=== PATIENT | female | born 1995 | race Caucasian/White ===

== ENCOUNTER 2019-07-28 10:48 | Emergency (ER) | payer BC, MEDICAID, SELFPAY ==
--- NOTE | ~2019-07-28 | XR_ITS ---
XR foot RT 2V DATE: 07/28/2019 11:54 INDICATION: Pain after misstep, injury TECHNIQUE: AP and lateral views COMPARISON: None FINDINGS: No fracture or dislocation, periosteal reaction or bone destruction. IMPRESSION: Negative Reviewed, dictated and finalized at location B. FORMER IMPRESSION: Negative
[2019-07-28 11:22] VITALS: BP 123/69; PULSE 85; RESP 20; TEMP 37.1; O2SAT 100
--- NOTE | 2019-07-28 12:53 | ED.LOWEXIN ---
HPI - Extremity Injury (Lower) General Chief Complaint: Extremity Injury, Lower Stated Complaint: right foot injury Time Seen by Provider: 07/28/19 11:28 Source: patient Mode of arrival: ambulatory Limitations: no limitations History of Present Illness HPI Narrative: Patient is a 24-year-old female who presents with right foot pain noting that she stepped awkwardly yesterday and has since had forefoot pain localized to the medial aspect of the right forefoot without bruising or swelling or other deformity is a been able to bear weight has no other complaints and presents in no distress Related Data Allergies Allergy/AdvReac Type Severity Reaction Status Date / Time bee venom protein (honey bee) Allergy Unknown Unknown Verified 07/28/19 11:24 ciprofloxacin Allergy Unknown Rash Verified 07/28/19 11:45 erythromycin base Allergy Unknown Swelling Verified 07/28/19 11:45 POTASSIUM CLAVULANATE Allergy Unknown NAUSEA/VOMI Uncoded 07/28/19 11:45 TING Review of Systems Review of Systems: Narrative: SKIN: Denies bruising or swelling MUSCULOSKELETAL: Right foot pain NEUROLOGIC: Denies numbness, or weakness. PMFSH Past Medical History Medical History ADHD, predominantly inattentive type Anxiety Endometriosis with surgery x3 Gout Kidney stone Migraines Shingles UTI (urinary tract infection) Surgical History Surgical History History of cholecystectomy History of knee surgery rt knee History of wisdom tooth extraction Family History Family History (Updated 05/17/18 @ 11:56 by DOCTOR UNKNOWN) Father Hypertension Patient's father is in good health Family history of pancreatic disease Mother Patient's mother is in good health Family history of gynecological problem Grandparent Diabetes mellitus Family history of cardiovascular disease Other Family history of lymphoma Social History Social History Smoking status: Never smoker Alcohol intake: current Gender identity (if verbalized by the patient): Female Exam Narrative: Exam Narrative: GENERAL: Well-appearing, well-nourished, and in no acute distress. HEAD: Normocephalic, atraumatic. EYES: PERRLA and EOMI. ENT: Nares clear, no rhinorrhea or epistaxis. Mucous membranes moist. EXTREMITIES: Normal range of motion. No edema. Tenderness of the right forefoot medial aspect no deformity noted no ankle tenderness SKIN: Warm, dry, no rash. NEURO: No focal deficits. Alert and oriented x3. Neurovascularly intact. Capillary refill less than 2 seconds PSYCH: Normal mood and affect. Course Course Emergency Course: Patient in the room in no distress aware of case findings treatment plan and diagnosis Vital Signs Vital signs: Vital Signs Temperature 98.7 F 07/28/19 11:22 Pulse Rate 85 07/28/19 11:22 Respiratory Rate 07/28/19 11:22 Blood Pressure 123/69 07/28/19 11:22 Pulse Oximetry 100 07/28/19 11:22 Temperature 98.7 F 07/28/19 11:22 Pulse Rate 85 07/28/19 11:22 Respiratory Rate 07/28/19 11:22 Blood Pressure 123/69 07/28/19 11:22 Pulse Oximetry 100 07/28/19 11:22 MDM - Extremity Injury (Lower) MDM Narrative Medical decision making narrative: Patients injury or pain is consistent with musculoskeletal etiology. No signs of neurological or vascular compromise on exam. Compartments and tisues are soft without signs of compartment syndrome. Pain is felt appropriate for further evaluation on an outpatient basis. Discharge Plan Discharge Clinical Impression: Acute pain of right foot Patient Disposition: Home, Self-Care Condition: Stable Instructions: Antibiotic Form, Foot Sprain (ED) Additional Instructions: Wear [place] wrap with limited weight on the affected leg until able to bear weight without pain. Ice and elevate extremit
== END 2019-07-28 13:05 | disposition home or self-care (01) ==
PROVIDERS: Emergency Provider Family Medicine; PCP Family Medicine
DX: M79.671 Pain in right foot (principal); F90.9 Attention-deficit hyperactivity disorder, unspecified type; F41.9 Anxiety disorder, unspecified; Z87.442 Personal history of urinary calculi; Z87.440 Personal history of urinary (tract) infections
CPT/HCPCS: 73620; 99283

== ENCOUNTER 2019-12-26 09:32 | Observation (INO) | payer BC, SELFPAY ==
[2019-12-26] VITALS (13 sets, daily range): BP systolic 102–135; BP diastolic 67–86; PULSE 40–64; RESP 10–20; TEMP 36.7–37.4; O2SAT 98–100
--- NOTE | ~2019-12-26 | CT_ITS ---
EXAMINATION: CTA chest PE protocol DATE: 12/26/2019 11:32 INDICATION: Mid chest pain. Shortness of breath. TECHNIQUE: Computed tomography angiography (CTA) of the chest was performed with 100 mL Omnipaque-350 intravenous contrast timed to evaluate the pulmonary arteries. Coronal maximum intensity projection 3D-reconstructions were created by the technologist. Automated exposure control and iterative reconst ruction technique were employed. Exam dose: 266.37 mGy-cm total exam DLP. COMPARISON: None. FINDINGS: There is diagnostic contrast enhancement of the pulmonary arteries and no evidence of pulmo nary embolism. No evidence of thoracic aortic aneurysm. No hilar or mediastinal mass lesion or lymphadenopathy. Normal heart size. No pericardial or pleural effusion. No pulmonary infiltrate or consolidation. Inci dentally noted is cholecystectomy. The adrenal glands are normal. No significant abnormality of the i ncluded upper abdominal structures. Included skeletal structures are unremarkable. IMPRESSION: No evidence of pulmonary embolism Reviewed, dictated and finalized at Location A. Reviewed, dictated and finalized at location A.
--- NOTE | ~2019-12-26 | XR_ITS ---
EXAMINATION: XR chest 2V 12/26/2019 10:05 INDICATION: Chest pain PROCEDURE: PA and lateral views of the chest COMPARISON: 03/29/2018 FINDINGS: The lungs are clear. The cardiomediastinal silhouette is within normal limits. There are no pleural effusions. There is no pneumothorax suspected. IMPRESSION: 1: NO ACUTE CARDIOPULMONARY DISEASE. Reviewed, dictated and finalized at location B.
--- NOTE | 2019-12-26 09:47 | ECG_ITS ---
Measurements Intervals [place] Rate: 46 P: 22 VT: 138 QRS: 37 QRSD: 83 T: 19 QT: 424 QTc: 373 Interpretive Statements SINUS BRADYCARDIA WITH SINUS ARRHYTHMIA ABNORMAL ECG Electronically Signed On 12-26-2019 11:11:14 CDT by Mark Matt D.O.
[2019-12-26] MEDS: ASPIRIN 81 MG CHEWABLE TABLET 324 MG PO (10:01)
[2019-12-26 10:05] LABS: Basophils Percent Auto 0.6 % (0.2-1.2); Eosinophils Absolute Auto 0.1 K/mm3 (0-0.3); Eosinophils Percent Auto 0.9 % (0-4.4); Hematocrit 44.6 % (37.0-47.0); Hemoglobin 14.7 g/dL (12.0-15.0); Immature Granulocyte Absolute 0.01 K/mm3 (0.00-0.031); Immature Granulocyte Percent A 0.2 % (0-0.5); Lymphocytes Absolute Auto 1.93 K/mm3 (0.9-3.2); Lymphocytes Percent Auto 36.3 % (18.3-44.2); Mean Corpuscular Hemoglobin 29.2 pg (26-34); Mean Corpuscular Volume 88.7 fl (80-100); Monocytes Absolute Auto 0.4 K/mm3 (0.1-0.6); Neutrophils Absolute Auto 2.9 K/mm3 (1.3-6.7); Platelet Count Result 261 k/mm3 (150-375); Red Blood Count 5.03 M/mm3 (4.2-5.4); Red Cell Distribution Width 12.4 % (11.5-14.5); White Blood Count 5.3 K/mm3 (4.5-10.0)
[2019-12-26 10:14] LABS: Blood Urea Nitrogen 8 mg/dL (7-17); Calcium 9.2 mg/dL (8.4-10.2); Carbon Dioxide 26 mmol/L (22-30); Chloride 102 mmol/L (98-107); Estimated CRCL calculation 81 ml/min; Estimated Glomerular Filt Rate > 60; Glucose 94 mg/dL (65-105); Potassium 4.1 mmol/L (3.4-5.0); Sodium 138 mmol/L (137-145)
[2019-12-26 10:17] LABS: Prothrombin Time 12.8 Seconds (11.1-14.7)
[2019-12-26 10:18] LABS: Partial Thromboplastin Time 30.4 SECONDS (22.3-36.8)
[2019-12-26 10:30] LABS: Troponin I 0.138 ng/mL (0.000-0.034)
--- NOTE | 2019-12-26 10:32 | ECG_ITS ---
Measurements Intervals [place] Rate: 42 P: 28 FL: 141 QRS: 21 QRSD: 83 T: 14 QT: 445 QTc: 375 Interpretive Statements SINUS BRADYCARDIA ABNORMAL ECG Electronically Signed On 12-26-2019 11:11:47 CDT by Mark Matt D.O.
[2019-12-26] MEDS: FAMOTIDINE 20 MG/2 ML VIAL IV PUSH (10:34)
--- NOTE | 2019-12-26 10:50 | PC.NURSE ---
Verbal order from Zoran DAVIS, do not administer toradal r/t elevated troponin.
[2019-12-26 11:02] LABS: D Dimer < 0.22 ug/mL (<0.48)
[2019-12-26 11:09] LABS: Add Urine Microscopic? YES; Appearance Urine Clear (Clear); Bilirubin Urine Negative (Negative); Blood Urine 1+ (Negative); Color Urine Straw (Yellow); Glucose Urine UA Negative (Negative); Ketones Urine Negative (Negative); Leukocyte Esterase Ur Negative LEU/UL (Negative); Nitrate Urine Negative (Negative); Protein Urine Negative (Negative); RBC Urine 0-2 /hpf (0-2); Squamous Epithelial Cell Urine Occasional /hpf (Few); Urobilinogen Urine Negative mg/dL (<2.0); WBC Urine 0-3 /hpf
--- NOTE | 2019-12-26 11:09 | ED.CHESTPAIN ---
HPI - Chest Pain General Chief Complaint: Chest Pain <MARIETTA Aparicio Last Filed: 12/26/19 13:10> Stated Complaint: CHEST HURTS, SOB <MARIETTA Aparicio Last Filed: 12/26/19 13:10> Time Seen by Provider: 12/26/19 10:05 <MARIETTA Aparicio Last Filed: 12/26/19 13:10> Source: patient <MARIETTA Aparicio Last Filed: 12/26/19 13:10> Mode of arrival: ambulatory <MARIETTA Aparicio Last Filed: 12/26/19 13:10> Limitations: no limitations <MARIETTA Aparicio Last Filed: 12/26/19 13:10> History of Present Illness HPI narrative: Patient is a 24-year-old female who presents to emergency department noting midsternal chest pain radiating up to the right side of the neck that woke her from her sleep this morning at 5 AM and has persisted and gradually worsened when she went to work made 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 Patient denies similar occurrence in the past. Patient notes that she has not taken anything for the pain and denies any recent illness. Patient resting comfortably in the room upon arrival. Patient was tested for COVID a week ago and notes negative result secondary to possible workplace exposure. Patient notes she has had bradycardia since having her gallbladder removed in May which was also complicated by a liver laceration. <MARIETTA Aparicio Last Filed: 12/26/19 13:10> Related Data Home Medications: Home Medications Medication Instructions Recorded Confirmed levonorgestrel-ethinyl estrad tablet 12/26/19 [Aviane] <MARIETTA Aparicio Last Filed: 12/26/19 13:10> Allergies/Adverse Reactions: Allergies Allergy/AdvReac Type Severity Reaction Status Date / Time bee venom protein (honey bee) Allergy Unknown Unknown Verified 12/26/19 09:44 ciprofloxacin Allergy Unknown Rash Verified 12/26/19 09:44 erythromycin base Allergy Unknown Swelling Verified 12/26/19 09:44 POTASSIUM CLAVULANATE Allergy Unknown NAUSEA/VOMI Uncoded 11/20/19 08:42 TING <MARIETTA Aparicio Last Filed: 12/26/19 13:10> Review of Systems Review of Systems: All systems reviewed & are unremarkable except as noted in HPI and below <Fredi Fung PA-C - Last Filed: 12/26/19 13:10> PMFSH Past Medical History Medical History: Medical History ADHD, predominantly inattentive type Anxiety Endometriosis with surgery x3 Gout Kidney stone Migraines Shingles UTI (urinary tract infection) <Fredi Fung PA-C - Last Filed: 12/26/19 13:10> Surgical History Surgical History: Surgical History History of cholecystectomy History of knee surgery rt knee History of wisdom tooth extraction <Fredi Fung PA-C - Last Filed: 12/26/19 13:10> Family History Family History: Family History Father Hypertension Patient's father is in good health Family history of pancreatic disease Mother Patient's mother is in good health Family history of gynecological problem Grandparent Diabetes mellitus Family history of cardiovascular disease Other Family history of lymphoma <Fredi Fung PA-C - Last Filed: 12/26/19 13:10> Social History Social History: Social History Smoking status: Never smoker Alcohol intake: current Gender identity (if verbalized by the patient): Female <Fredi Fung PA-C - Last Filed: 12/26/19 13:10> Exam Narrative: Exam Narrative: GENERAL: Well-appearing, well-nourished, and in no acute distress. HEAD: Normocephalic, atraumatic. EYES: PERRLA and EOMI. ENT: Nares clear, no rhinorrhea or epistaxis. Mucous membranes moist. Oropharynx without tonsillar hypertrophy exudate or other lesions. NECK: Sup
--- NOTE | 2019-12-26 11:24 | PC.NURSE ---
pt to ct via stretcher with radiology at this time.
[2019-12-26 13:42] LABS: Cholesterol 183 mg/dL (0-200); HDL Direct 62 mg/dL; Triglycerides 63 mg/dL (<150)
[2019-12-26 13:53] LABS: LDL Cholesterol Direct 111 mg/dL
[2019-12-26 14:08] LABS: Troponin I < 0.012 ng/mL (0.000-0.034)
--- NOTE | 2019-12-26 16:03 | ECG_ITS ---
Measurements Intervals [place] Rate: 42 P: 16 MT: 143 QRS: 33 QRSD: 84 T: 18 QT: 445 QTc: 374 Interpretive Statements SINUS BRADYCARDIA INCOMPLETE RIGHT BUNDLE BRANCH BLOCK BORDERLINE ST-T WAVE ABNORMALITY- ANT/INF LEADS BASELINE ARTIFACT- V4 ABNORMAL ECG Electronically Signed On 12-27-2019 10:55:17 CDT by Mark Matt D.O.
--- NOTE | 2019-12-26 16:22 | PM.IMHP ---
H&P: HPI History of Present Illness Chief complaint: Elevated troponin/chest pain Narrative: Asuncion Umanzor is a 24 year old female who came to the emergency room today with pleuritic chest pain. The patient stated that she was sleeping and it woke her up this morning around 5:00 a.m. this morning. The patient stated that she had pressure to her midsternal area and it hurt worse whenever she would lean forward or bends over. The patient attempted to go to work but then her chest pain would not go away and she decided to come to the emergency room. Her pain hurt worse with movement leaning forward and taking deep breaths. She has not had any history of any PEs or DVTs in the past. She has not had any fever chills or any cough. 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 She has had a history of bradycardia since she had her gallbladder removed in 2018. Her heart rate was found to be in the 40s. As sinus bradycardia abnormal EKG which compared to 2018 they are similar. Elevated white count. Baseline troponin was 0.138. the 3 hour troponin was 0.012. Patient still has some minimal discomfort but is minimal when she is lying flat. It is worse when she takes deep breaths or leans forward. Chest CTA was read as no evidence of pulmonary embolism. Chest x-ray was read as no acute cardiopulmonary disease. Cardiology had been consulted. The patient was given Toradol which the patient stated that did help. She is also given IV Tylenol, aspirin and Pepcid. Date of service 12/26/2019 Review of Systems Review of Systems: All systems reviewed & are unremarkable except as noted in HPI and below Constitutional: Constitutional: Reports as per HPI and Reports no additional constitutional complaints Eyes: Eyes: Reports as per HPI and Reports no additional eye complaints ENT: Reports system reviewed and no additional complaints, except as documented and Reports Normal hearing present Cardiovascular: Cardiovascular: Reports no additional cardiovascular complaints Respiratory: Respiratory: Reports no additional respiratory complaints and Reports no additional respiratory complaints Gastrointestinal: Gastrointestinal: Reports as per HPI and Reports no additional gastrointestinal complaints Musculoskeletal: Musculoskeletal: Reports no additional musculoskeletal complaints Integumentary/Breasts: Skin/Breast: Reports system reviewed and no additional complaints, except as docu and Reports as per HPI Neurologic: Reports system reviewed and no additional complaints, except as documented, Reports as per HPI and Reports Normal hearing present Psychiatric: Psychiatric: Reports no additional psychiatric complaints and Reports as per HPI Endocrine: Endocrine: Reports no additional endocrine complaints Hematologic/Lymphatic: Hematologic/Lymphatic: Reports no additional hematologic/lymphatic complaints Allergic/Immunologic: Allergic/Immunologic: Reports no additional allergic/immunologic complaints COUNTS INCLUDE 234 BEDS AT THE [facility] Past Medical History Medical History (Updated 12/26/19 @ 16:32 by Lashae Sweet NP) ADHD, predominantly inattentive type Anxiety Endometriosis with surgery x3 Gout Migraines Shingles UTI (urinary tract infection) Surgical History Surgical History History of cholecystectomy History of knee surgery rt knee History of wisdom tooth extraction Family History Family History Father Hypertension Patient's father is in good health Family history of pancreatic disease Mother Patient's mother is in good health Family history of gynecological problem Grandparent Diabetes mellitus Family history of cardiovascular disease Other Family history of lymphoma Social History Social History Smoking status: Former smoker Alcohol
[2019-12-26 17:13] LABS: Troponin I < 0.012 ng/mL (0.000-0.034)
[2019-12-26 18:11] LABS: Amphetamine Screen Urine Negative (Negative); Barbiturate Screen Urine Negative (Negative); Benzodiazepines Screen Urine Negative (Negative); Cannabinoid Screen Urine Negative (Negative); Cocaine Screen Urine Negative (Negative); Methadone Screen Urine Negative (Negative); Opiate Screen Urine Negative (Negative); Phencyclidine Screen Urine Negative (Negative)
[2019-12-26] MEDS: ACETAMINOPHEN 325 MG TABLET 650 MG PO (18:56)
--- NOTE | 2019-12-26 19:03 | ECG_ITS ---
Measurements Intervals [place] Rate: 44 P: 17 VT: 139 QRS: 60 QRSD: 86 T: 17 QT: 455 QTc: 390 Interpretive Statements SINUS BRADYCARDIA INCOMPLETE RIGHT BUNDLE BRANCH BLOCK BORDERLINE ST-T WAVE ABNORMALITY- ANT/INF LEADS ABNORMAL ECG Electronically Signed On 12-26-2019 16:54:14 CDT by Mark Matt D.O.
--- NOTE | 2019-12-26 19:50 | PC.NURSE ---
This patient, Asuncion Umanzor, was admitted to IMU Room 212-01. Patient/family oriented to hospital policies and general routines including ID bracelet, bed and alarms, visiting hours, pain management, procedures, bathroom and other care routines, personal items, smoking policy, room service/diet, and visiting hours. Valuables list has been completed. Information on how to activate the Rapid Response Team has been discussed. Patient/Family are encouraged to report perceived risks to care and to ask questions if they do not understand what they are told or what they should do.
[2019-12-26] MEDS: RIZATRIPTAN BENZOATE 10 MG TABLET PO (22:06)
[2019-12-27] VITALS (8 sets, daily range): BP systolic 113–116; BP diastolic 57–79; PULSE 41–62; RESP 16–18; TEMP 36.1–37.2; O2SAT 100
[2019-12-27] MEDS: RIZATRIPTAN BENZOATE 10 MG TABLET PO (00:05)
[2019-12-27 04:52] LABS: Basophils Percent Auto 0.7 % (0.2-1.2); Eosinophils Absolute Auto 0.1 K/mm3 (0-0.3); Eosinophils Percent Auto 1.4 % (0-4.4); Hematocrit 42.2 % (37.0-47.0); Hemoglobin 13.9 g/dL (12.0-15.0); Immature Granulocyte Absolute 0.01 K/mm3 (0.00-0.031); Immature Granulocyte Percent A 0.2 % (0-0.5); Lymphocytes Absolute Auto 2.24 K/mm3 (0.9-3.2); Lymphocytes Percent Auto 52.1 % (18.3-44.2); Mean Corpuscular HGB Conc 32.9 g/dl (32-36); Mean Corpuscular Hemoglobin 29.1 pg (26-34); Mean Corpuscular Volume 88.3 fl (80-100); Mean Platelet Volume 11.2 fl (7.4-10.4); Monocytes Absolute Auto 0.4 K/mm3 (0.1-0.6); Monocytes Percent Auto 8.4 % (2.6-8.5); Neutrophils Absolute Auto 1.6 K/mm3 (1.3-6.7); Neutrophils Percent Auto 37.2 % (45.5-73.1); Platelet Count Result 242 k/mm3 (150-375); Red Blood Count 4.78 M/mm3 (4.2-5.4); Red Cell Distribution Width 12.3 % (11.5-14.5); White Blood Count 4.3 K/mm3 (4.5-10.0)
[2019-12-27 05:11] LABS: CRP 0.6 mg/dL (<1.0); Lipase 54 U/L (23-300)
--- NOTE | 2019-12-27 06:00 | ECHO_ITS ---
Patient Info Name: Asuncion Umanzor Age: 24 years : 1995 Gender: Female Ht: 63 in Wt: 165 lbs BSA: 1.85 m2 HR: 61 bpm BP: 116 / 57 mmHg Technical Quality: Good Exam Date: 12/27/2019 9:14 AM Exam Location: [facility] Pulmonary Exam Room: 212 Patient Status: Outpatient Admit Date: 12/26/2019 Staff Ordering Physician: Fredi Fung PA-C Horse Breeder: Ching Cosme RDCS Attending Provider: Roxanne Gomes MD Referring Physician: Kenton WATTS; Exam Type: CA echo doppler color flow Study Info Indications - chest pain Complete two-dimensional, color flow and Doppler transthoracic echocardiogram is performed. Summary 1. Left ventricular chamber dimension is normal. 2. Left ventricular systolic function is normal, estimated at 60-65%. 3. There is no increased left ventricular wall thickness. 4. The left ventricular diastolic function is normal. 5. Right ventricular chamber dimension is normal. 6. Right ventricular systolic function is normal. 7. Mild pulmonary hypertension, estimated pulmonary arterial systolic pressure is 34 mmHg. Left Ventricle Left ventricular chamber dimension is normal. Left ventricular systolic function is normal, estimated at 60-65%. There is no increased left ventricular wall thickness. The left ventricular diastolic function is normal. Right Ventricle Right ventricular chamber dimension is normal. Right ventricular systolic function is normal. Left Atria Left atrial chamber dimension is normal. Right Atria Right atrial chamber dimension is normal. Aortic Valve The aortic valve is trileaflet. There is no aortic valve stenosis. There is no aortic valve regurgitation. Mitral Valve The mitral valve has normal leaflets. There is no mitral valve stenosis. There is no mitral valve regurgitation. Tricuspid Valve The tricuspid valve leaflets are normal. There is no significant tricuspid valve stenosis. There is no tricuspid valve regurgitation. Mild pulmonary hypertension, estimated pulmonary arterial systolic pressure is 34 mmHg. Pericardium/Pleural The pericardium appears normal. There is no pericardial effusion. Inferior Vena Cava Normal inferior vena cava with >50% collapse upon inspiration consistent with normal right atrial pressure, 3 mmHg. Left Ventricular Outflow Tract Name Value Normal LVOT 2D LVOT Diameter 2.0 cm LVOT Doppler LVOT Peak Gradient 9 mmHg LVOT Mean Gradient 5 mmHg LVOT VTI 29 cm LVOT VTI/AV VTI Ratio 0.8 LVOT Stroke Volume 91 ml LVOT CO 20.2 l/min LVOT CI 10.9 l/min/m2 Pulmonic Valve Name Value Normal PV Doppler PV Peak Gradient 5
[2019-12-27 07:12] LABS: Erythrocyte Sedimentation Rate 6 mm/hr (0-20)
[2019-12-27] MEDS: ASPIRIN 81 MG CHEWABLE TABLET PO (09:55)
[2019-12-27] MEDS: ENOXAPARIN 40 MG/0.4 ML SYRINGE SUB-Q (09:56)
--- NOTE | 2019-12-27 10:16 | PM.CNCAR ---
Assessment and Plan Additional Plan Pleuritic, non cardiac pain, one time elevation in trop but repeat * 2 was negative could be false positive or error, other differential diagnosis is pericarditis, no evidence in examination or ECHO to support and expected enzymes not to be back to normal quickly. plan repeat trop and get TTE and if negative then treat with NSAIDS/Tylenol for muscloskeletal pain History of Present Illness History of Present Illness Consult date/time: 12/27/19 10:16 Consult reason: chest pain Reason For Visit: Elevated troponin/chest pain Narrative: acute chest pain middle of chest, moderate to sever, aching to sharp, non radiating, worse with change position and breathing, better today. No associated dyspnea, cough or fevers. Review of Systems Review of Systems: All systems reviewed & are unremarkable except as noted in HPI and below PMFSH Family History Family History Father Hypertension Patient's father is in good health Family history of pancreatic disease Mother Patient's mother is in good health Family history of gynecological problem Grandparent Diabetes mellitus Family history of cardiovascular disease Other Family history of lymphoma Social History Social History Smoking status: Former smoker Alcohol intake: current Drinks per week: 1 Substance use: never Gender identity (if verbalized by the patient): Female Spiritual care concerns: No Meds Home Medications and Allergies Home Medications Medication Instructions Recorded Confirmed Type rizatriptan 10 mg tablet See Rx Instructions PO .COMPLEX 11/05/19 11/05/19 Rx #30 tablet levonorgestrel-ethinyl estrad 1 tablet DAILY 12/26/19 12/26/19 History [Aviane] Allergies Allergy/AdvReac Type Severity Reaction Status Date / Time bee venom protein (honey bee) Allergy Unknown Unknown Verified 12/26/19 09:44 ciprofloxacin Allergy Unknown Rash Verified 12/26/19 09:44 erythromycin base Allergy Unknown Swelling Verified 12/26/19 09:44 POTASSIUM CLAVULANATE Allergy Unknown NAUSEA/VOMI Uncoded 11/20/19 08:42 TING Vital Signs Vital Signs - 24 hr 12/26/19 11:00 12/26/19 11:02 12/26/19 13:50 Temperature 36.7 C Pulse Rate 40 L 46 L Respiratory Rate 18 18 Blood Pressure 125/76 102/68 Pulse Oximetry 100 98 12/26/19 14:14 12/26/19 14:15 12/26/19 14:20 Temperature 37.3 C Pulse Rate 46 L 47 L 47 L Respiratory Rate 20 16 Blood Pressure 102/68 130/71 Pulse Oximetry 99 100 12/26/19 16:00 12/26/19 18:00 12/26/19 19:55 Temperature 37.4 C 37.2 C Pulse Rate 49 L 64 44 L Respiratory Rate 16 18 Blood Pressure 105/67 109/70 Pulse Oximetry 100 100 12/26/19 20:00 12/26/19 22:00 12/27/19 00:00 Temperature 36.1 C L Pulse Rate 47 L 40 L 41 L Respiratory Rate 18 Blood Pressure 113/70 Pulse Oximetry 100 12/27/19 02:00 12/27/19 04:00 12/27/19 04:30 Temperature 37.2 C Pulse Rate 44 L 62 44 L Respiratory Rate 16 Blood Pressure 116/57 L Pulse Oximetry 100 12/27/19 06:00 12/27/19 08:00 Temperature 37.1 C Pulse Rate 42 L 49 L Respiratory Rate 16 Blood Pressure 116/79 Pulse Oximetry 100 Exam Const: General: comfortable and no acute distress Other: Able to lie flat HENMT: General nose exam: Normal nares present and no epistaxis Mouth: Yes moist mucous membranes Eyes: Sclera: sclerae normal Pupils: Equal, round and reactive pupils present Neck: Neck: supple and no JVD Carotids: no bruits Resp: Auscultation: clear to auscultation bilaterally and lung sounds not diminished Other: No chest wall tenderness Cardio: Rate: regular rate Rhythm: regular rhythm Heart sounds: no gallops, no murmurs and no rubs GI: GI Palp: Yes Soft to palpation and No Tenderness to palpation present (GI) Auscultation: normal bowel sounds Skin: General ski
[2019-12-27 11:43] LABS: Troponin I < 0.012 ng/mL (0.000-0.034)
--- NOTE | 2019-12-27 17:03 | PM.DS ---
DS: Admitting Diagnosis Admitting Diagnosis Admitting Diagnosis: Chest pain, unspecified DS: Discharge Diagnosis Discharge Diagnosis (1) Chest pain: Code(s): R07.9 - Chest pain, unspecified Status: Acute Assessment and Plan: Patient has mild discomfort. She stated she has pain with deep inspiration and when leaning forward bending over. Does not sound like a typical pericarditis. She has not had any recent infection viral bacteria. She has no fever no chills. Echo was normal with EF 60% and mild pulmonary hypertension at 34. Toradol seemed to relieve the discomfort. Cardiology cardiology saw on did not feel the pain was cardiac but chest wall or muscle skeletal. They did recommend follow-up for the mild pulmonary hypertension for possible right heart catheterization later. She was negative for PE by CTA. urine drug screen was negative as well. P.r.n. ibuprofen on discharge (2) Elevated troponin: Code(s): R79.89 - Other specified abnormal findings of blood chemistry Status: Acute Assessment and Plan: Unsure of etiology. The patient does not have any history of any seizure disorder or any injury or any strenuous activity. The 3 hour troponin was found to be negative. As was subsequent troponins and echo showed no wall motion abnormality. (3) Sinus bradycardia: Code(s): R00.1 - Bradycardia, unspecified Status: Acute Assessment and Plan: She is asymptomatic. And chronic problem with normal TSH (4) Migraine with aura, not intractable, without status migrainosus: Code(s): G43.109 - Migraine with aura, not intractable, without status migrainosus Status: Acute Assessment and Plan: P.r.n. Motrin and Jenifer. DS: Summary Hospital Course Hospital Course: 24-year-old healthy white female on oral contraceptives presented to the hospital with pleuritic chest pain worse with deep inspiration or leaning forward. CTA revealed no emboli an EKG shows nonspecific changes but no evidence of pericarditis. Initial troponin borderline elevated but subsequent were all normal. Echocardiogram revealed normal ejection fraction 60% with mild estimated pulmonary hypertension of 34. Was seen in consultation by cardiology and felt the pain was muscle skeletal and recommended anti-inflammatories. They were concerned about the mild pulmonary hypertension and she will follow-up with cardiology for further evaluation and possible right heart catheterization in the future Time Spent with Patient Time attestation: Total time spent providing and/or coordinating discharge services: 35 minutes Exam Narrative: Exam Narrative: Condition on discharge Blood pressure 116/80 pulse is 50 and regular sat 100% on room air afebrile Lungs clear CV no murmurs gallops rubs or clicks Abdomen soft nontender Extremities without edema distal pulses are 2+ Neuro alert no focal deficits Sharp pain had subsided still some mild tightness in her chest DS: Data Data Completed and Pending Labs on day of discharge: Labs from last 24 hours 12/27/19 12/27/19 12/27/19 11:14 04:34 04:34 WBC 4.3 L RBC 4.78 Hgb 13.9 Hct 42.2 MCV 88.3 MCH 29.1 MCHC 32.9 RDW 12.3 Plt Count 242 MPV 11.2 H Immature Gran % (Auto) 0.2 Neut % (Auto) 37.2 L Lymph % (Auto) 52.1 H Hardin % (Auto) 8.4 Eos % (Auto) 1.4 Baso % (Auto) 0.7 Lymph # (Auto) 2.24 Hardin # (Auto) 0.4 Eos # (Auto) 0.1 Baso # (Auto) 0.0 Abs Immat Gran (auto) 0.01 Absolute Neuts (auto) 1.6 Absolute Nucleated RBC 0.0 Nucleated RBC % 0.0 ESR 6 Magnesium 2.0 Troponin I < 0.012 C-Reactive Protein 0.6 Lipase 54 Urine Opiates Screen Urine Methadone Screen Ur Barbiturates Screen Ur Phencyclidine Scrn Ur Amphetamine Screen U Benzodiazepines Scrn Urine Cocaine Screen U Cannabinoids Screen 12/26/19 12/26/19 17:44 15:52 WBC RBC Hgb
== END 2019-12-27 13:12 | disposition home or self-care (01) ==
LOC: ANHED 13:14 → ANHIMU 14:37
PROVIDERS: Emergency Medicine Emergency Medical Services; Internal Medicine Interventional Cardiology; Nurse Practitioner; Admitting Provider Family Medicine; Emergency Provider Emergency Medicine; PCP Family Medicine; Visit Provider Internal Medicine
DX: R07.9 Chest pain, unspecified (principal); R79.89 Other specified abnormal findings of blood chemistry; R00.1 Bradycardia, unspecified; G43.109 Migraine with aura, not intractable, without status migrainosus; I27.20 Pulmonary hypertension, unspecified; F90.0 Attention-deficit hyperactivity disorder, predominantly inattentive type; M10.9 Gout, unspecified; F41.9 Anxiety disorder, unspecified; Z87.891 Personal history of nicotine dependence; Z79.3 Long term (current) use of hormonal contraceptives
CPT/HCPCS: 36415; 71046; 71275; 80048; 80061; 80307; 81001; 81025; 83690; 83735; 84443; 84484; 85025; 85380; 85610; 85652; 85730; 86140; 93005; 93306; 96365; 96372; 96375; 99285; A9270; G0378; G0379; J0131; J1650; Q9967

== ENCOUNTER 2020-04-30 06:54 | Outpatient (NON) | payer BC, SELFPAY ==
[2020-05-01 06:47] LABS: SARS-CoV-2 RNA PCR Negative
== END 2020-04-30 06:55 ==
LOC: ANHCOVIDDT 06:54
PROVIDERS: PCP Family Medicine; Visit Provider Family Medicine
DX: R05 Cough (principal); R51.9 Headache, unspecified; Z20.828 Contact with and (suspected) exposure to other viral communicable diseases
CPT/HCPCS: 87635; C9803; U0003

== ENCOUNTER 2020-08-12 17:01 | Outpatient (CLI) | payer BC, SELFPAY ==
--- NOTE | ~2020-08-12 | XR_ITS ---
EXAMINATION: XR chest 2V DATE: 08/12/2020 17:27 INDICATION: Cough, suspected TB exposure TECHNIQUE: PA and lateral views of the chest are obtained. COMPARISON: 12/26/2019 FINDINGS: The lungs are free of acute opacities. There is no pleural effusion or pneumothorax. The ca rdiomediastinal silhouette is normal. The visualized bones and soft tissues are unremarkable. Surgica l clips in the right upper quadrant are likely from prior cholecystectomy. IMPRESSION: 1. No acute cardiopulmonary abnormality. Reviewed, dictated and finalized at location A. DER CLEANER
== END 2020-08-12 17:02 | disposition home or self-care (01) ==
PROVIDERS: PCP Family Medicine; Visit Provider Family Medicine
DX: Z20.1 Contact with and (suspected) exposure to tuberculosis (principal)
CPT/HCPCS: 71046

== ENCOUNTER 2020-11-29 16:13 | Outpatient (CLI) | payer BC, SELFPAY ==
--- NOTE | ~2020-11-29 | XR_ITS ---
EXAMINATION: XR elbow LT min 3V DATE: 11/29/2020 16:36 INDICATION: Left elbow injury. TECHNIQUE: 4 views of left elbow were obtained. COMPARISON: None. FINDINGS: Bone alignment is normal. No fracture. Joint spaces are well maintained. There is no elbow joint effusion. IMPRESSION: 1. Normal left elbow. Reviewed, dictated and finalized at location A. IMPRESSION: 1. Normal left elbow.
== END 2020-11-29 16:14 | disposition home or self-care (01) ==
LOC: ANHIMG 16:19
PROVIDERS: PCP Family Medicine; Visit Provider Physician Assistant
DX: M25.522 Pain in left elbow (principal)
CPT/HCPCS: 73080

== ENCOUNTER 2021-06-02 09:37 | Outpatient (CLI) | payer BC, SELFPAY ==
[2021-06-02 10:11] LABS: Alanine Aminotransferase 24 U/L (4-35); Albumin Level 4.7 g/dL (3.5-5.1); Alkaline Phosphatase 87 U/L (38-126); Anion Gap 9 mmol/L (8-16); Aspartate Amino Transferase 26 U/L (14-36); Bilirubin,Total 1.3 mg/dL (0.2-1.3); Blood Urea Nitrogen 10 mg/dL (7-17); Calcium 9.4 mg/dL (8.4-10.2); Carbon Dioxide 25 mmol/L (22-30); Chloride 102 mmol/L (98-107); Estimated Glomerular Filt Rate > 60; Glucose 97 mg/dL (65-110); Potassium 4.1 mmol/L (3.4-5.0); Sodium 136 mmol/L (137-145)
== END 2021-06-02 09:38 | disposition home or self-care (01) ==
LOC: ANHLAB 09:39
PROVIDERS: PCP Family Medicine; Visit Provider Family Medicine
DX: E16.2 Hypoglycemia, unspecified (principal)
CPT/HCPCS: 36415; 80053; 84443

== ENCOUNTER 2021-06-04 21:23 | Emergency (ER) | payer BC, SELFPAY ==
--- NOTE | 2021-06-04 21:26 | ECG_ITS ---
Measurements Intervals Plessis Rate: 82 P: 19 VT: 142 QRS: -1 QRSD: 82 T: -9 QT: 338 QTc: 396 Interpretive Statements SINUS RHYTHM BORDERLINE R WAVE PROGRESSION, ANTERIOR LEADS CONSIDER INFERIOR INFARCT, AGE INDETERMINATE BORDERLINE ST-T WAVE ABNORMALITY- ANTERIOR LEADS ABNORMAL ECG Electronically Signed On 06-05-2021 9:00:44 TEXTILE SCRAP SALVAGER by Mark Matt D.O.
[2021-06-04 21:37] VITALS: BP 133/86; PULSE 100; RESP 20; TEMP 36.8; O2SAT 96
[2021-06-04 21:53] LABS: Basophils Percent Auto 0.2 % (0.2-1.2); Eosinophils Absolute Auto 0.1 K/mm3 (0-0.3); Eosinophils Percent Auto 0.8 % (0-4.4); Hematocrit 37.7 % (37.0-47.0); Hemoglobin 12.7 g/dL (12.0-15.0); Immature Granulocyte Absolute 0.02 K/mm3 (0.00-0.031); Immature Granulocyte Percent A 0.2 % (0-0.5); Lymphocytes Absolute Auto 1.28 K/mm3 (0.9-3.2); Mean Corpuscular HGB Conc 33.7 g/dl (32-36); Mean Corpuscular Volume 88.9 fl (80-100); Mean Platelet Volume 10.5 fl (7.4-10.4); Monocytes Absolute Auto 0.6 K/mm3 (0.1-0.6); Monocytes Percent Auto 7.1 % (2.6-8.5); Neutrophils Absolute Auto 6.5 K/mm3 (1.3-6.7); Neutrophils Percent Auto 76.7 % (45.5-73.1); Platelet Count Result 239 k/mm3 (150-375); Red Blood Count 4.24 M/mm3 (4.2-5.4); Red Cell Distribution Width 12.5 % (11.5-14.5); White Blood Count 8.5 K/mm3 (4.5-10.0)
[2021-06-04 22:02] LABS: Alanine Aminotransferase 21 U/L (4-35); Albumin Level 4.2 g/dL (3.5-5.1); Alkaline Phosphatase 89 U/L (38-126); Anion Gap 4 mmol/L (8-16); Aspartate Amino Transferase 24 U/L (14-36); Bilirubin,Total 0.7 mg/dL (0.2-1.3); Blood Urea Nitrogen 8 mg/dL (7-17); Carbon Dioxide 24 mmol/L (22-30); Chloride 103 mmol/L (98-107); Estimated CRCL calculation 103 ml/min; Estimated Glomerular Filt Rate > 60; Glucose 104 mg/dL (65-110); Lipase 62 U/L (23-300); Prothrombin Time 13.3 Seconds (11.1-14.7); Sodium 131 mmol/L (137-145)
[2021-06-04 22:14] LABS: Troponin I < 0.012 ng/mL (0.000-0.034)
--- NOTE | 2021-06-04 23:01 | PC.NURSE ---
Pt's mother wheeled pt out of dept. informed this RN she was leaving.
== END 2021-06-04 23:26 | disposition left against medical advice (07) ==
LOC: ANHED 23:06
PROVIDERS: Emergency Provider Emergency Medicine; PCP Family Medicine
DX: R07.9 Chest pain, unspecified (principal)
CPT/HCPCS: 36415; 80053; 83690; 84484; 85025; 85610; 85730; 93005; 99199

== ENCOUNTER 2022-04-26 19:55 | Emergency (ER) | payer OTHER, SELFPAY ==
--- NOTE | ~2022-04-26 | XR_ITS ---
EXAMINATION: XR hand LT min 3V INDICATION: Left hand pain TECHNIQUE: Three views of the left hand are obtained. COMPARISON: 03/03/2019 FINDINGS: Bone alignment is normal. There is no fracture. There is soft tissue swelling of the fourth finger. The joint spaces are normal. IMPRESSION: 1. Soft tissue swelling of the left fourth finger without acute osseous abnormality. Reviewed, dictated and finalized at location F. S COORDINATOR IMPRESSION: 1. Soft tissue swelling of the left fourth finger without acute osseous abnorma lity.
[2022-04-26 20:00] VITALS: BP 117/95; PULSE 65; RESP 16; TEMP 36.3; O2SAT 99
--- NOTE | 2022-04-26 20:32 | ED.UPPEXIN ---
HPI - Extremity Injury (Upper) General Chief Complaint: Extremity Injury, Upper Stated Complaint: left hand, ring finger swelling Time Seen by Provider: 04/26/22 19:58 Source: patient and RN notes reviewed Mode of arrival: ambulatory Limitations: no limitations History of Present Illness complaint: injury to: left and finger Onset (ago): day(s) (2) Other Extremity Injury: Left: fingers Place: home Severity: mild Severity scale (1-10): 4 Relieving factors: none Exacerbating factors: none Context: other (no acute injury) Related Data Home Medications Medication Instructions Recorded Confirmed prenat.vits,ashley,[id number] 1 tablet PO DAILY 04/21/22 04/26/22 Allergies Allergy/AdvReac Type Severity Reaction Status Date / Time bee venom protein (honey bee) Allergy Unknown Unknown Verified 04/27/22 11:20 ciprofloxacin Allergy Unknown Rash Verified 04/27/22 11:20 erythromycin base Allergy Unknown Swelling Verified 04/27/22 11:20 POTASSIUM CLAVULANATE Allergy Unknown NAUSEA/VOMI Uncoded 04/27/22 11:20 TING Review of Systems Review of Systems: All systems reviewed & are unremarkable except as noted in HPI and below Constitutional: Constitutional: Reports no additional constitutional complaints Eyes: Eyes: Reports no additional eye complaints ENT: Reports system reviewed and no additional complaints, except as documented Cardiovascular: Cardiovascular: Reports no additional cardiovascular complaints Respiratory: Respiratory: Reports no additional respiratory complaints Gastrointestinal: Gastrointestinal: Reports no additional gastrointestinal complaints Genitourinary: Genitourinary: Reports no additional female genitourinary complaints Musculoskeletal: Musculoskeletal: Reports no additional musculoskeletal complaints and Reports arthralgias Integumentary/Breasts: Skin/Breast: Reports system reviewed and no additional complaints, except as docu Neurologic: Reports system reviewed and no additional complaints, except as documented Psychiatric: Psychiatric: Reports no additional psychiatric complaints Endocrine: Endocrine: Reports no additional endocrine complaints Hematologic/Lymphatic: Hematologic/Lymphatic: Reports no additional hematologic/lymphatic complaints Allergic/Immunologic: Allergic/Immunologic: Reports no additional allergic/immunologic complaints PMFSH Past Medical History Medical History ADHD, predominantly inattentive type Anxiety Dislocated patella Endometriosis with surgery x3 Gout Migraines Shingles UTI (urinary tract infection) Surgical History Surgical History History of arthroscopy of knee History of cholecystectomy History of knee surgery rt knee History of wisdom tooth extraction Family History Family History Father Hypertension Patient's father is in good health Family history of pancreatic disease Mother Patient's mother is in good health Family history of gynecological problem Grandparent Diabetes mellitus Family history of cardiovascular disease Other Family history of lymphoma Social History Social History Smoking status: Never smoker Alcohol intake: current Drinks per week: 1 Substance use: never Gender identity (if verbalized by the patient): Female Spiritual care concerns: No Exam Const: General: healthy appearing, no acute distress and well nourished Nutritional Appearance: well nourished Orientation/consciousness: patient oriented x3 Limitations: no limitations HENMT: Head: normal to inspection Ears: external ears normal, TM's normal bilaterally and EAC's normal Face/Nose/Sinus: Normal external nose present, Normal nares present, normal facial exam and sinuses nontender Face and sinus: normal facia
--- NOTE | 2022-04-26 20:51 | PC.NURSE ---
PT IS SITTING ON STRETCHER TALKING WITH . NAD NOTED. PT IS AWAITING RAD RESULTS AT THIS TIME. +PMS POST CRUZ TAPING AND SLING APPLICATION. WILL CONTINUE TO MONITOR.
[2022-04-26] MEDS: IBUPROFEN 400 MG TABLET 800 MG PO (21:02)
[2022-04-26] MEDS: cefTRIAXone 1 GM, LIDOCAINE HCL 1% LOCAL INJ 2.1 ML IM (21:03)
--- NOTE | 2022-04-26 21:05 | PC.NURSE ---
PT DECLINED THE SLING, REPORTS SHE HAS ONE AT HOME. +PMS POST CRUZ TAPING.
== END 2022-04-26 21:27 | disposition home or self-care (01) ==
PROVIDERS: Emergency Provider Emergency Medicine
DX: L03.012 Cellulitis of left finger (principal)
CPT/HCPCS: 73130; 96372; 99283; A9270; J0696

== ENCOUNTER 2022-12-23 07:43 | Emergency (ER) | payer BC, SELFPAY ==
[2022-12-23 07:43] VITALS: BP 111/80; PULSE 80; RESP 18; TEMP 36.8; O2SAT 97
--- NOTE | 2022-12-23 08:02 | ED.FALL ---
HPI - Fall General Stated Complaint: fall; right foot injury and abd pain (15 wks preg) Time Seen by Provider: 12/23/22 07:56 Source: patient Mode of arrival: ambulatory Limitations: no limitations History of Present Illness HPI Narrative: 27-year-old female, 15 weeks tripped and fell at home. she presents is with -- laceration of right 4th webspace. -- abdominal discomfort. No vaginal discharge. Denies any abdominal pain -- erythema right lateral leg. no head injury. No other injuries noted. MD complaint: fall Onset (ago): minute(s) ( 15 minutes ago) Fall from: standing Fall witnessed: no Place fall occurred: home Loss of consciousness: none Prolonged down time: no Symptoms prior to fall: none Context: tripped/slipped Location of injury: other ( right foot 4th webspace, abdomen) Location of injury - extremities: Right: foot Severity: mild Quality: aching Associated symptoms (after fall): denies and other ( patient is concerned about possible injury to the fetus but does not have any abdominal pain) Related Data Home Medications Medication Instructions Recorded Confirmed prenat.vits,ashley,[id number] 1 tablet PO DAILY 04/21/22 06/06/22 Allergies Allergy/AdvReac Type Severity Reaction Status Date / Time bee venom protein (honey bee) Allergy Unknown Unknown Verified 06/06/22 15:28 ciprofloxacin Allergy Unknown Rash Verified 06/06/22 15:28 erythromycin base Allergy Unknown Swelling Verified 06/06/22 15:28 POTASSIUM CLAVULANATE Allergy Unknown NAUSEA/VOMI Uncoded 06/06/22 15:28 TING Review of Systems Review of Systems: All systems reviewed & are unremarkable except as noted in HPI and below Constitutional: Constitutional: Reports as per HPI and Reports no additional constitutional complaints Eyes: Eyes: Reports as per HPI and Reports no additional eye complaints ENT: Reports system reviewed and no additional complaints, except as documented and Reports as per HPI Cardiovascular: Cardiovascular: Reports as per HPI and Reports no additional cardiovascular complaints Respiratory: Respiratory: Reports as per HPI and Reports no additional respiratory complaints Gastrointestinal: Gastrointestinal: Reports as per HPI and Reports no additional gastrointestinal complaints Genitourinary: Genitourinary: Reports no additional female genitourinary complaints and Reports as per HPI Comments: 15 weeks with confirmed intrauterine . Last obstetric appointment was 1 week ago and was noted to have heart rate of 150 Musculoskeletal: Musculoskeletal: Reports no additional musculoskeletal complaints and Reports as per HPI Comments: superficial laceration right 4th webspace, erythema over the right lateral leg Integumentary/Breasts: Skin/Breast: Reports system reviewed and no additional complaints, except as docu Neurologic: Reports system reviewed and no additional complaints, except as documented Psychiatric: Psychiatric: Reports no additional psychiatric complaints and Reports as per HPI Endocrine: Endocrine: Reports no additional endocrine complaints and Reports as per HPI Hematologic/Lymphatic: Hematologic/Lymphatic: Reports no additional hematologic/lymphatic complaints and Reports as per HPI Allergic/Immunologic: Allergic/Immunologic: Reports no additional allergic/immunologic complaints PMFSH Past Medical History Medical History ADHD, predominantly inattentive type Anxiety Dislocated patella Endometriosis with surgery x3 Gout Migraines Shingles UTI (urinary tract infection) Surgical History Surgical History History of arthroscopy of knee History of cholecystectomy History of knee surgery rt knee History of wisdom tooth extraction Family History Family History Father Hypertension
[2022-12-23 08:29] VITALS: BP 111/80; PULSE 81; RESP 20; TEMP 36.8; O2SAT 97
[2022-12-23] MEDS: NEOMYCIN/POLYMYXIN/BACITRACIN OINTMENT PACKET 1 PACKET TOPICAL (08:29)
== END 2022-12-23 08:40 | disposition home or self-care (01) ==
PROVIDERS: Emergency Provider Internal Medicine Critical Care Medicine; PCP Family Medicine
DX: O26.892 Other specified pregnancy related conditions, second trimester (principal); S91.311A Laceration without foreign body, right foot, initial encounter; Z3A.15 15 weeks gestation of pregnancy; W01.0XXA Fall on same level from slipping, tripping and stumbling without subsequent striking against object, initial encounter; Y92.009 Unspecified place in unspecified non-institutional (private) residence as the place of occurrence of the external cause
CPT/HCPCS: 99282

== ENCOUNTER 2022-12-27 16:42 | Emergency (ER) | payer BC, SELFPAY ==
--- NOTE | ~2022-12-27 | US_ITS ---
EXAMINATION: US OB limited DATE: 12/27/2022 20:00 INDICATION: Fall on stomach last week, complaint of fluid leak. TECHNIQUE: Real-time ultrasound of the pelvis was performed. COMPARISON: None. FINDINGS: There is a single living fetus in vertex presentation, longitudinal lie. The placenta is anterior, w ith the inferior edge approaching the internal os. heart rate is 157 bpm. The single deepest am niotic fluid pocket measures 4.1 cm. The cervix is closed and measures at least 3.6 cm. IMPRESSION: Single living fetus in vertex presentation. The cervix is closed and measures at least 3.6 cm, but was partially obscured. Possible marginal placenta, recommend sonographic follow-up as clinically indicated. Reviewed, dictated and finalized at location K. IMPRESSION: Single living fetus in vertex presentation. The cervix is closed and measures at least 3.6 cm, but was partially obscured. Possible marginal placenta, recommend sonographic follow-up as clinically indic ated.
[2022-12-27 16:56] VITALS: BP 118/73; PULSE 64; RESP 20; TEMP 36.5; O2SAT 100
[2022-12-27 17:21] LABS: Basophils Percent Auto 0.5 % (0.2-1.2); Eosinophils Absolute Auto 0.1 K/mm3 (0-0.3); Eosinophils Percent Auto 0.7 % (0-4.4); Hematocrit 39.8 % (37.0-47.0); Hemoglobin 13.1 g/dL (12.0-15.0); Immature Granulocyte Absolute 0.02 K/mm3 (0.00-0.031); Immature Granulocyte Percent A 0.2 % (0-0.5); Lymphocytes Absolute Auto 2.29 K/mm3 (0.9-3.2); Lymphocytes Percent Auto 27.1 % (18.3-44.2); Mean Corpuscular HGB Conc 32.9 g/dl (32-36); Mean Corpuscular Hemoglobin 29.4 pg (26-34); Mean Corpuscular Volume 89.2 fl (80-100); Mean Platelet Volume 10.7 fl (7.4-10.4); Monocytes Absolute Auto 0.5 K/mm3 (0.1-0.6); Monocytes Percent Auto 6.1 % (2.6-8.5); Neutrophils Absolute Auto 5.5 K/mm3 (1.3-6.7); Neutrophils Percent Auto 65.4 % (45.5-73.1); Platelet Count Result 258 k/mm3 (150-375); Red Blood Count 4.46 M/mm3 (4.2-5.4); White Blood Count 8.5 K/mm3 (4.5-10.0)
--- NOTE | 2022-12-27 20:03 | ED.PREGNANCY ---
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 Patient states 4 days ago, she stubbed her toe on the floor in her home and fell to the ground, landing on her abdomen. States she went to [place] [facility] for evaluation after the fall and had good heart tones and was discharged home. States she called Dr. Aparicio's office who is her AUDIO PRODUCTION ENGINEER who advised the patient to return to the ED if she develops any abdominal pain, cramping or bleeding. Patient states yesterday she started developing abdominal cramping and back cramping as well as clear odorless fluid from her vagina. States that it seems like she has been peeing on herself. She denies dysuria, hematuria, fever, concern for STDs, vaginal bleeding. Related Data Home Medications Medication Instructions Recorded Confirmed prenat.vits,ashley,[id number] 1 tablet PO DAILY 04/21/22 12/23/22 Allergies Allergy/AdvReac Type Severity Reaction Status Date / Time bee venom protein (honey bee) Allergy Unknown Unknown Verified 12/27/22 16:43 ciprofloxacin Allergy Unknown Rash Verified 12/27/22 16:43 erythromycin base Allergy Unknown Swelling Verified 12/27/22 16:43 POTASSIUM CLAVULANATE Allergy Unknown NAUSEA/VOMI Uncoded 12/27/22 16:43 TING Review of Systems Review of Systems: CONSTITUTIONAL: Denies fever, chills EYES: Denies visual changes, redness, or discharge. ENT: Denies rhinorrhea, congestion, sore throat, or otalgia. CARDIOVASCULAR: Denies chest pain, palpitations, or edema. RESPIRATORY: Denies cough or dyspnea. GASTROINTESTINAL: See HPI GENITOURINARY: See HPI SKIN: Denies rash or itching. MUSCULOSKELETAL: Denies back pain, joint pain, or myalgia. NEUROLOGIC: Denies headache, numbness, dizziness, or weakness. PSYCHIATRIC: Denies anxiety or depression. [facility] Past Medical History Medical History ADHD, predominantly inattentive type Anxiety Dislocated patella Endometriosis with surgery x3 Gout Migraines Shingles UTI (urinary tract infection) Surgical History Surgical History History of arthroscopy of knee History of cholecystectomy History of knee surgery rt knee History of wisdom tooth extraction Family History Family History Father Hypertension Patient's father is in good health Family history of pancreatic disease Mother Patient's mother is in good health Family history of gynecological problem Grandparent Diabetes mellitus Family history of cardiovascular disease Other Family history of lymphoma Social History Social History Smoking status: Never smoker Alcohol intake: current Drinks per week: 1 Substance use: never Lack of Transportation: No Lack of Food: Never True Current Housing: I Have Housing Concerned About Future Housing: No Difficulty Paying Gas/Electric Bills: No Difficulty Paying for Meds: No Currently Unemployed: No Education: Master's Degree or Higher Difficulty w/ Childcare or Family Care: No Gender identity (if verbalized by the patient): Female Spiritual care concerns: No Exam Narrative: GENERAL: Well-appearing, in no acute distress. Patient resting in room examined. She is pleasant and conversational HEAD: Normocephalic NECK: Supple. CHEST: No respiratory distress. Clear to auscultation, no adventitious breath sounds. HEART: Regular rate and rhythm. No murmur heard. Normal peripheral pulses. ABDOMEN: Soft, nontender, normal active bowel sounds. Gr
--- NOTE | 2022-12-27 20:22 | PC.NURSE ---
OB called about FERN test and stated they do not utilize that anymore but use another tool to test fluid. OB RN stated patient is too early in for test to work. RYAN Esparza, notified.
[2022-12-27 21:54] LABS: Alanine Aminotransferase 27 U/L (6-35); Albumin Level 4.2 g/dL (3.5-5.1); Alkaline Phosphatase 62 U/L (38-126); Anion Gap 9 mmol/L (8-16); Aspartate Amino Transferase 29 U/L (14-36); Bilirubin,Total 0.5 mg/dL (0.2-1.3); Blood Urea Nitrogen 5 mg/dL (7-17); Calcium 9.1 mg/dL (8.4-10.2); Carbon Dioxide 22 mmol/L (22-30); Chloride 104 mmol/L (98-107); Estimated CRCL calculation 146 ml/min; Estimated Glomerular Filt Rate > 60; Glucose 103 mg/dL (65-110); Potassium 3.9 mmol/L (3.4-5.0); Sodium 135 mmol/L (137-145)
[2022-12-27 22:38] LABS: Appearance Urine Clear (Clear); Bacteria Urine None Seen /hpf; Bilirubin Urine Negative (Negative); Blood Urine Negative (Negative); Color Urine Yellow (Yellow); Glucose Urine UA Negative (Negative); Ketones Urine Trace mg/dL (Negative); Leukocyte Esterase Ur Trace LEU/UL (Negative); Nitrate Urine Negative (Negative); Non Pathogenic Casts 0-2; Protein Urine Negative (Negative); RBC Urine 0-2 /hpf (0-2); Specific Grav Ur 1.004 (1.001-1.035); Squamous Epithelial Cell Urine Occasional /hpf (Few); Urobilinogen Urine 0.2 mg/dL (<2.0); WBC Urine 0-5 /hpf; pH Urine 5.5 (5.0-9.0)
[2022-12-27 23:01] LABS: Add Urine Microscopic? YES
[2022-12-27 23:08] VITALS: BP 111/83; PULSE 69; RESP 18; O2SAT 100
== END 2022-12-27 23:10 | disposition home or self-care (01) ==
PROVIDERS: Emergency Medicine; Emergency Provider Physician Assistant; PCP Family Medicine
DX: O26.892 Other specified pregnancy related conditions, second trimester (principal); R10.9 Unspecified abdominal pain; O99.891 Other specified diseases and conditions complicating pregnancy; N80.9 Endometriosis, unspecified; Z87.440 Personal history of urinary (tract) infections; Z90.49 Acquired absence of other specified parts of digestive tract; Z3A.15 15 weeks gestation of pregnancy
CPT/HCPCS: 36415; 76815; 80053; 81001; 84702; 85025; 85461; 86850; 86900; 86901; 99284

== ENCOUNTER 2023-01-05 09:30 | Emergency (ER) | payer BC, SELFPAY ==
[2023-01-05 09:36] VITALS: BP 127/81; PULSE 58; RESP 16; TEMP 36.4; O2SAT 99
[2023-01-05] MEDS: FAMOTIDINE 20 MG TABLET PO (10:28)
--- NOTE | 2023-01-05 11:55 | ED.ALLEREA ---
HPI - Allergic Reaction General Chief complaint: Allergic Reaction Stated complaint: allergic reaction, 17 weeks Time Seen by Provider: 01/05/23 09:45 History of Present Illness HPI narrative: This is a 27-year-old female G1, P0, 17 weeks , with past history of multiple drug allergies, who presents to the emergency department complaining of rash and pain of the left fourth finger and the right distal fourth finger. The patient states she took Diflucan yesterday and within about 2 hours of taking the medication and noticed redness at the distal aspect of the right fourth finger. Today she noticed spreading redness and pain over the left third finger. This is similar to previous rashes after taking other medications, including erythromycin. Related Data Home Medications Medication Instructions Recorded Confirmed prenat.vits,ashley,[id number] 1 tablet PO DAILY 04/21/22 12/23/22 Allergies Allergy/AdvReac Type Severity Reaction Status Date / Time bee venom protein (honey bee) Allergy Unknown Unknown Verified 01/05/23 09:48 ciprofloxacin Allergy Unknown Rash Verified 01/05/23 09:48 erythromycin base Allergy Unknown Swelling Verified 01/05/23 09:48 POTASSIUM CLAVULANATE Allergy Unknown NAUSEA/VOMI Uncoded 12/27/22 16:43 TING Review of Systems Review of Systems: CONSTITUTIONAL: Denies fever, chills, or sweats. CARDIOVASCULAR: Denies chest pain, palpitations, or edema. RESPIRATORY: Denies cough or dyspnea. GASTROINTESTINAL: Denies abdominal pain, nausea, vomiting, or diarrhea. GENITOURINARY: Denies dysuria or hematuria. SKIN: Rash on the left fourth finger and right fourth finger with itching MUSCULOSKELETAL: Denies back pain, joint pain, or myalgia. NEUROLOGIC: Denies headache, numbness, dizziness, or weakness. PSYCHIATRIC: Denies anxiety or depression. [facility] Past Medical History Medical History ADHD, predominantly inattentive type Anxiety Dislocated patella Endometriosis with surgery x3 Gout Migraines Shingles UTI (urinary tract infection) Surgical History Surgical History History of arthroscopy of knee History of cholecystectomy History of knee surgery rt knee History of wisdom tooth extraction Family History Family History Father Hypertension Patient's father is in good health Family history of pancreatic disease Mother Patient's mother is in good health Family history of gynecological problem Grandparent Diabetes mellitus Family history of cardiovascular disease Other Family history of lymphoma Social History Social History Smoking status: Never smoker Alcohol intake: current Drinks per week: 1 Substance use: never Lack of Transportation: No Lack of Food: Never True Current Housing: I Have Housing Concerned About Future Housing: No Difficulty Paying Gas/Electric Bills: No Difficulty Paying for Meds: No Currently Unemployed: No Education: Master's Degree or Higher Difficulty w/ Childcare or Family Care: No Gender identity (if verbalized by the patient): Female Spiritual care concerns: No Exam Narrative: GENERAL: Well-developed, well-nourished, and in no acute distress. HEAD: Normocephalic, atraumatic. EYES: PERRLA and EOMI. ENT: Nares clear, no rhinorrhea or epistaxis. Mucous membranes moist. Oropharynx without tonsillar hypertrophy exudate or other lesions. CHEST: Clear to auscultation. No respiratory distress. No wheezes rales or rhonchi HEART: Regular rate and rhythm. No murmur heard. Normal peripheral pulses. ABDOMEN: Soft, nontender, nondistended, normal active bowel sounds. EXTREMITIES: Normal range of motion. No edema. SKIN: There is a 3 cm x 2 cm area of of erythema and induration noted over
[2023-01-05] MEDS: ACETAMINOPHEN 500 MG TABLET 1000 MG PO (12:17)
[2023-01-05 12:50] VITALS: BP 120/76; PULSE 60; RESP 16; O2SAT 99
== END 2023-01-05 12:50 | disposition home or self-care (01) ==
PROVIDERS: Emergency Provider Preventive Medicine Aerospace Medicine; PCP Family Medicine
DX: O99.712 Diseases of the skin and subcutaneous tissue complicating pregnancy, second trimester (principal); L50.9 Urticaria, unspecified; O99.891 Other specified diseases and conditions complicating pregnancy; N80.9 Endometriosis, unspecified; M10.9 Gout, unspecified; Z87.440 Personal history of urinary (tract) infections; Z90.49 Acquired absence of other specified parts of digestive tract; Z3A.17 17 weeks gestation of pregnancy
CPT/HCPCS: 99283; A9270

== ENCOUNTER 2023-03-24 08:57 | Observation (INO) | payer BC, SELFPAY ==
[2023-03-24 09:18] VITALS: BP 114/71; PULSE 74
[2023-03-24 09:20] VITALS: RESP 16; RESP 18; TEMP 36.3; BMI 38.2
--- NOTE | 2023-03-24 09:20 | OBADM ---
This patient, Asuncion Mcadams, admitted to the OB room 116 for observation. Patient/family oriented to hospital policies and general routines including ID bracelet, bed and alarms, visiting hours, pain management, procedures, bathroom and other care routines, personal items, smoking policy, room service/diet, and visiting hours. Patient/Family are encouraged to report perceived risks to care and to ask questions if they do not understand what they are told or what they should do.
[2023-03-24 09:44] LABS: Add Urine Microscopic? YES; Appearance Urine Slightly Cloudy (Clear); Bilirubin Urine Negative (Negative); Blood Urine Negative (Negative); Color Urine Yellow (Yellow); Glucose Urine UA Negative (Negative); Ketones Urine Negative (Negative); Leukocyte Esterase Ur 1+ LEU/UL (Negative); Nitrate Urine Negative (Negative); Protein Urine Negative (Negative); Specific Grav Ur 1.025 (1.001-1.035); Urobilinogen Urine 0.2 mg/dL (<2.0)
[2023-03-24 09:45] LABS: Bacteria Urine 1+ /hpf; Non Pathogenic Casts 0-2; RBC Urine 0-2 /hpf (0-2); Squamous Epithelial Cell Urine Moderate /hpf (Few)
[2023-03-24 10:00] VITALS: BP 118/79; PULSE 62
[2023-03-24] MEDS: ONDANSETRON HCL ODT 4 MG TABLET PO (10:44)
--- NOTE | 2023-04-19 12:59 | PM.OBTRLD ---
OB - Triage/Final Diagnosis Visit Information Comments/Additional reasons for admission: I have assessed the risk for this patient, Asuncion Mcadams, and determined that she would benefit from observation care. Evaluation Laboratory results: Laboratory Tests 03/24/23 09:34 Urine Color Yellow Urine Appearance Slightly cloudy Urine pH 7.0 Ur Specific [place] 1.025 Urine Protein Negative Urine Glucose (UA) Negative Urine Ketones Negative Ur Blood (Man) Negative Urine Nitrate Negative Urine Bilirubin Negative Urine Urobilinogen 0.2 Leukocyte Esterase Rfl 1+ H Urine RBC 0-2 Urine WBC 11-20 H Ur Squamous Epith Cells Moderate Urine Bacteria 1+ H Urine Casts 0-2 Final Diagnosis (1) Decreased movement: Code(s): O36.8190 - Decreased movements, unspecified trimester, not applicable or unspecified Status: Acute
== END 2023-03-24 11:06 | disposition home or self-care (01) ==
PROVIDERS: Admitting Provider Obstetrics & Gynecology; PCP Family Medicine; Visit Provider Obstetrics & Gynecology
DX: O36.8130 Decreased fetal movements, third trimester, not applicable or unspecified (principal); Z3A.28 28 weeks gestation of pregnancy; O26.893 Other specified pregnancy related conditions, third trimester; R10.9 Unspecified abdominal pain
CPT/HCPCS: 81001; 87086; 87088; A9270; G0378; G0379

== ENCOUNTER 2023-04-05 16:33 | Observation (INO) | payer BC, SELFPAY ==
--- NOTE | ~2023-04-05 | US_ITS ---
EXAMINATION: US OB limited DATE: 04/05/2023 18:06 INDICATION: Placental check/abdominal trauma, third trimester TECHNIQUE: Real-time ultrasound of the pelvis was performed. The interpreting radiologist was not pre sent for the study. COMPARISON: 12/27/2022 FINDINGS: There is a single living fetus in vertex presentation. The placenta is anterior. card iac activity and movement are noted. heart rate is 148 beats per minute (bpm). The amniot ic fluid index is subjectively normal. IMPRESSION: 1. Single living fetus in vertex presentation. 2. Grossly normal placenta without evidence of previa or abruption. However, acute hemorrhage can be isoechoic to the placenta. Recommend continued clinical followup. Reviewed, dictated and finalized at location F. IMPRESSION: 1. Single living fetus in vertex presentation. 2. Grossly normal placenta without evidence of previa or abruption. However, a cute hemorrhage can be isoechoic to the placenta. Recommend continued clinical followup.
[2023-04-05 16:52] VITALS: BP 123/66; PULSE 65
[2023-04-05 17:00] VITALS: BP 115/61; PULSE 63
[2023-04-05 17:15] VITALS: BP 124/76; PULSE 64
[2023-04-05 17:38] VITALS: BMI 37.8
--- NOTE | 2023-04-05 17:38 | OBADM ---
This patient, Asuncion Mcadams, admitted to the OB room OB Post 112 for observation. Patient/family oriented to hospital policies and general routines including ID bracelet, bed and alarms, visiting hours, pain management, procedures, bathroom and other care routines, personal items, smoking policy, room service/diet, and visiting hours. Patient/Family are encouraged to report perceived risks to care and to ask questions if they do not understand what they are told or what they should do.
--- NOTE | 2023-04-06 10:38 | PM.OBTRLD ---
OB - Triage/Final Diagnosis Visit Information Reason for evaluation: threatened labor Comments/Additional reasons for admission: I have assessed the risk for this patient, Asuncion Mcadams, and determined that she would benefit from observation care. Evaluation Laboratory results: Laboratory Tests 04/05/23 04/05/23 17:13 17:26 Blood Type O Positive KB Hemoglobin Negative Vital signs: Vital Signs - 24 hr 04/05/23 16:52 04/05/23 17:00 04/05/23 17:15 Pulse Rate 65 63 64 Blood Pressure 123/66 115/61 124/76
== END 2023-04-05 19:39 | disposition home or self-care (01) ==
PROVIDERS: Admitting Provider Obstetrics & Gynecology; PCP Family Medicine; Visit Provider Obstetrics & Gynecology
DX: O47.03 False labor before 37 completed weeks of gestation, third trimester (principal); Z3A.30 30 weeks gestation of pregnancy
CPT/HCPCS: 36415; 76815; 85460; 86900; 86901; G0378; G0379

== ENCOUNTER 2023-05-07 17:39 | Outpatient (RCR) | payer BC, SELFPAY ==
[2023-05-07 18:41] VITALS: BP 119/68; PULSE 76
--- NOTE | 2023-05-07 19:46 | PM.OBTRLD ---
OB - Triage/Final Diagnosis Visit Information Date of evaluation: 05/07/23 Reason for evaluation: decreased movement Comments/Additional reasons for admission: I have assessed the risk for this patient, Asuncion Mcadams, and determined that she would benefit from observation care. Evaluation Vital signs: Vital Signs - 24 hr 05/07/23 18:41 Pulse Rate 76 Blood Pressure [Left Arm] 119/68
== END 2023-08-05 23:59 | disposition home or self-care (01) ==
LOC: ANHOBOP 17:39
PROVIDERS: PCP Family Medicine; Visit Provider Obstetrics & Gynecology
DX: O36.8130 Decreased fetal movements, third trimester, not applicable or unspecified (principal); Z3A.34 34 weeks gestation of pregnancy
CPT/HCPCS: 59025

== ENCOUNTER 2023-05-10 19:04 | Observation (INO) | payer BC, SELFPAY ==
[2023-05-10 19:19] VITALS: BP 121/80; PULSE 79
[2023-05-10 19:30] VITALS: BMI 40.8
[2023-05-10 19:31] VITALS: BP 112/58; PULSE 81
[2023-05-10 19:46] VITALS: BP 117/66; PULSE 70
--- NOTE | 2023-05-10 20:07 | OBADM ---
This patient, Asuncion Mcadams, admitted to the OB room Labor/Delivery/Recovery 105 for observation. Patient/family oriented to hospital policies and general routines including ID bracelet, bed and alarms, visiting hours, pain management, procedures, bathroom and other care routines, personal items, smoking policy, room service/diet, and visiting hours. Patient/Family are encouraged to report perceived risks to care and to ask questions if they do not understand what they are told or what they should do.
--- NOTE | 2023-05-15 06:38 | PM.OBTRLD ---
OB - Triage/Final Diagnosis Visit Information Reason for evaluation: threatened labor Comments/Additional reasons for admission: I have assessed the risk for this patient, Asuncion Mcadams, and determined that she would benefit from observation care.
== END 2023-05-10 20:20 | disposition home or self-care (01) ==
PROVIDERS: Admitting Provider Obstetrics & Gynecology; PCP Family Medicine; Visit Provider Obstetrics & Gynecology
DX: O47.03 False labor before 37 completed weeks of gestation, third trimester (principal); Z3A.35 35 weeks gestation of pregnancy
CPT/HCPCS: 84112; G0378; G0379

== ENCOUNTER 2023-05-28 16:01 | Outpatient (CLI) | payer BC, SELFPAY ==
--- NOTE | ~2023-05-28 | US_ITS ---
EXAMINATION: US OB BPP wo non-stress DATE: 05/28/2023 17:56 SPORTS DOCTOR INDICATION: Variable decelerations. TECHNIQUE: Real-time transabdominal obstetric ultrasound. FINDINGS: Comparison ultrasound dated 04/05/2023 There is a single living fetus in vertex presentation. The placenta is anterior/left without placent a previa. cardiac activity and movement is noted with a heart rate of 157 beats per minute. A FI is normal measuring 14.1 cm. Biophysical profile: breathin of 2 movement: 2 of 2 tone: 2 of 2 Amniotic flud pocket: 2 of 2 Total score: 8 of 8 IMPRESSION: 1. Single living intrauterine in vertex presentation. 2: Total biophysical profile score of 8/8. Reviewed, dictated and finalized at location A. TS DOCTOR
[2023-05-28 16:16] VITALS: BP 120/71; PULSE 77
[2023-05-28 16:31] VITALS: BP 131/77; PULSE 71
[2023-05-28 16:45] LABS: Basophils Percent Auto 0.4 % (0.2-1.2); Eosinophils Absolute Auto 0.1 K/mm3 (0-0.3); Eosinophils Percent Auto 0.7 % (0-4.4); Hematocrit 33.2 % (37.0-47.0); Hemoglobin 11.2 g/dL (12.0-15.0); Immature Granulocyte Absolute 0.14 K/mm3 (0.00-0.031); Immature Granulocyte Percent A 1.3 % (0-0.5); Lymphocytes Absolute Auto 2.47 K/mm3 (0.9-3.2); Lymphocytes Percent Auto 23.6 % (18.3-44.2); Mean Corpuscular HGB Conc 33.7 g/dl (32-36); Mean Corpuscular Hemoglobin 29.6 pg (26-34); Mean Corpuscular Volume 87.8 fl (80-100); Mean Platelet Volume 11.1 fl (7.4-10.4); Monocytes Absolute Auto 0.8 K/mm3 (0.1-0.6); Neutrophils Absolute Auto 6.9 K/mm3 (1.3-6.7); Platelet Count Result 199 k/mm3 (150-375); Red Blood Count 3.78 M/mm3 (4.2-5.4); Red Cell Distribution Width 13.2 % (11.5-14.5); White Blood Count 10.5 K/mm3 (4.5-10.0)
[2023-05-28 16:46] VITALS: BP 128/82; PULSE 68
[2023-05-28 16:55] LABS: Alanine Aminotransferase 18 U/L (6-35); Albumin Level 3.4 g/dL (3.5-5.1); Alkaline Phosphatase 144 U/L (38-126); Anion Gap 8 mmol/L (8-16); Aspartate Amino Transferase 26 U/L (14-36); Bilirubin,Total 0.5 mg/dL (0.2-1.3); Blood Urea Nitrogen 4 mg/dL (7-17); Calcium 8.8 mg/dL (8.4-10.2); Carbon Dioxide 20 mmol/L (22-30); Chloride 106 mmol/L (98-107); Estimated Glomerular Filt Rate > 60; Glucose 124 mg/dL (65-110); Potassium 3.6 mmol/L (3.4-5.0); Sodium 134 mmol/L (137-145); Uric Acid 2.4 mg/dL (2.5-7.5)
[2023-05-28 16:56] LABS: Appearance Urine Clear (Clear); Bacteria Urine None Seen /hpf; Bilirubin Urine Negative (Negative); Blood Urine Negative (Negative); Color Urine Yellow (Yellow); Glucose Urine UA Negative (Negative); Ketones Urine Negative (Negative); Leukocyte Esterase Ur 2+ LEU/UL (NEGATIVE); Nitrate Urine Negative (Negative); Non Pathogenic Casts 0-2; Protein Urine Negative (Negative); RBC Urine 0-2 /hpf (0-2); Specific Grav Ur 1.004 (1.001-1.035); Squamous Epithelial Cell Urine Occasional /hpf (Few); Urobilinogen Urine 0.2 mg/dL (<2.0); WBC Urine 21-50 /hpf (0-3)
[2023-05-28 17:01] VITALS: BP 125/81; PULSE 70
--- NOTE | 2023-05-28 17:08 | PC.NURSE ---
Called Dr. Tru Costa with lab results and BPs. Informed of variable decelerations noted on tracing. BPP ordered. If October D/C home.
[2023-05-28 17:10] LABS: Add Urine Microscopic? YES
[2023-05-28 17:11] LABS: Creatinine Urine 29.4 mg/dL; Total Protein Urine Random 13 mg/dL; Ur Ttl Prot Creatinine Ratio 0.44 mg/mg (0-0.20)
[2023-05-28 17:16] VITALS: BP 126/76; PULSE 66
== END 2023-05-28 17:50 | disposition home or self-care (01) ==
LOC: ANHOBOP 16:05 → ANHOBPP 16:07
PROVIDERS: PCP Family Medicine; Visit Provider Obstetrics & Gynecology
DX: O13.3 Gestational [pregnancy-induced] hypertension without significant proteinuria, third trimester (principal); O36.8390 Maternal care for abnormalities of the fetal heart rate or rhythm, unspecified trimester, not applicable or unspecified; Z3A.37 37 weeks gestation of pregnancy
CPT/HCPCS: 36415; 59025; 76819; 80053; 81001; 82570; 84156; 84550; 85025; 87086; 87088; 99199

== ENCOUNTER 2023-05-30 21:27 | Inpatient (IN) | payer BC, SELFPAY ==
[2023-05-30] VITALS (25 sets, daily range): BP systolic 115–134; BP diastolic 63–110; PULSE 63–87; TEMP 36.8; O2SAT 93–100; BMI 42.3
--- NOTE | 2023-05-30 21:59 | LDADM ---
This patient, Asuncion Mcadams, was admitted to Labor/Delivery/Recovery 106 on 05/30/23 at 21:27. Plans for labor, pain management and were discussed with patient. Patient/family oriented to hospital policies and general routines including ID bracelet, bed and alarms, visiting hours, pain management, procedures, bathroom and other care routines, personal items, smoking policy, room service/diet and guest tray routines, infant security routines, and visiting hours. Patient/Family are encouraged to report perceived risks to care and to ask questions if they do not understand what they are told or what they should do. See OBIX for further documentation.
[2023-05-30 22:13] LABS: Basophils Absolute Auto 0.1 K/mm3 (0.0-0.1); Basophils Percent Auto 0.5 % (0.2-1.2); Eosinophils Absolute Auto 0.1 K/mm3 (0-0.3); Eosinophils Percent Auto 0.7 % (0-4.4); Hematocrit 34.3 % (37.0-47.0); Hemoglobin 11.1 g/dL (12.0-15.0); Immature Granulocyte Percent A 0.9 % (0-0.5); Lymphocytes Absolute Auto 2.74 K/mm3 (0.9-3.2); Lymphocytes Percent Auto 25.3 % (18.3-44.2); Mean Corpuscular HGB Conc 32.4 g/dl (32-36); Mean Corpuscular Hemoglobin 29.4 pg (26-34); Mean Corpuscular Volume 90.7 fl (80-100); Mean Platelet Volume 11.5 fl (7.4-10.4); Monocytes Absolute Auto 0.8 K/mm3 (0.1-0.6); Monocytes Percent Auto 7.5 % (2.6-8.5); Neutrophils Absolute Auto 7.1 K/mm3 (1.3-6.7); Neutrophils Percent Auto 65.1 % (45.5-73.1); Platelet Count Result 206 k/mm3 (150-375); Red Blood Count 3.78 M/mm3 (4.2-5.4); Red Cell Distribution Width 13.2 % (11.5-14.5); White Blood Count 10.8 K/mm3 (4.5-10.0)
[2023-05-30] MEDS: DINOPROSTONE 10 MG VAG INSERT VAGINAL (22:15)
[2023-05-30 22:23] LABS: Alanine Aminotransferase 17 U/L (6-35); Albumin Level 3.3 g/dL (3.5-5.1); Alkaline Phosphatase 143 U/L (38-126); Anion Gap 5 mmol/L (8-16); Aspartate Amino Transferase 24 U/L (14-36); Bilirubin,Total 0.4 mg/dL (0.2-1.3); Blood Urea Nitrogen 4 mg/dL (7-17); Calcium 8.7 mg/dL (8.4-10.2); Carbon Dioxide 23 mmol/L (22-30); Chloride 107 mmol/L (98-107); Estimated CRCL calculation 156 ml/min; Estimated Glomerular Filt Rate > 60; Glucose 116 mg/dL (65-110); Potassium 3.8 mmol/L (3.4-5.0); Sodium 135 mmol/L (137-145); Uric Acid 2.5 mg/dL (2.5-7.5)
[2023-05-31] VITALS (204 sets, daily range): BP systolic 79–144; BP diastolic 39–108; PULSE 25–247; RESP 16–18; TEMP 36.4–38.3; O2SAT 81–100
--- NOTE | 2023-05-31 02:23 | PM.IMHP ---
H&P: HPI History of Present Illness Date/Time: 05/31/23 02:23 Chief Complaint: Elevated blood pressure at term Narrative: this is a 28-year-old 1 para 0 whose last menstrual period was 08/08/2022, EDC is 06/14/2023, who presents at 38 weeks gestation for induction of labor secondary to elevated blood pressures. Her has been otherwise uncomplicated she does have a headache but no blurred vision PMFSH Past Medical History Medical History ADHD, predominantly inattentive type Anxiety Dislocated patella Endometriosis with surgery x3 Gout Migraines Shingles UTI (urinary tract infection) Surgical History Surgical History History of arthroscopy of knee History of cholecystectomy History of knee surgery rt knee History of wisdom tooth extraction Family History Family History Father Patient's father is in good health Family history of pancreatic disease Hypertension Mother Family history of gynecological problem Patient's mother is in good health Dementia Grandparent Family history of cardiovascular disease Diabetes mellitus Other Family history of lymphoma Social History Social History Smoking status: Never smoker Alcohol intake: current Drinks per week: 1 Substance use: never Do You Feel Safe in your Home?: Yes Lack of Transportation: YES Lack of Food: Never True Current Housing: I Have Housing Concerned About Future Housing: No Difficulty Paying Gas/Electric Bills: No Difficulty Paying for Meds: No Currently Unemployed: No Education: Master's Degree or Higher Difficulty w/ Childcare or Family Care: No Gender identity (if verbalized by the patient): Female Spiritual care concerns: No Meds Home Medications and Allergies Home Medications Medication Instructions Recorded Confirmed Type vit no.95-ferrous 1 tablet PO DAILY 03/24/23 05/15/23 History fumarate 28 mg-folic acid 800 mcg tablet () Allergies Allergy/AdvReac Type Severity Reaction Status Date / Time bee venom protein (honey bee) Allergy Unknown Unknown Verified 05/15/23 15:27 ciprofloxacin Allergy Unknown Rash Verified 05/15/23 15:27 erythromycin base Allergy Unknown Swelling Verified 05/15/23 15:27 prednisone Allergy Hives Verified 05/15/23 15:51 POTASSIUM CLAVULANATE Allergy Unknown NAUSEA/VOMI Uncoded 05/15/23 15:27 TING Vital Signs Vital Signs - 24 hr 05/30/23 22:11 05/30/23 22:12 05/30/23 22:16 Temperature 98.3 F Pulse Rate 78 79 Blood Pressure 134/110 H 115/80 Pulse Oximetry 93 95 Oxygen Delivery 05/30/23 22:21 05/30/23 22:26 05/30/23 22:31 Temperature Pulse Rate 72 Blood Pressure 124/72 Pulse Oximetry 96 97 96 Oxygen Delivery 05/30/23 22:36 05/30/23 22:41 05/30/23 22:46 Temperature Pulse Rate 76 Blood Pressure 129/68 Pulse Oximetry 95 97 95 Oxygen Delivery 05/30/23 22:51 05/30/23 22:56 05/30/23 23:01 Temperature Pulse Rate 83 Blood Pressure 130/74 Pulse Oximetry 97 96 96 Oxygen Delivery 05/30/23 23:06 05/30/23 23:11 05/30/23 23:16 Temperature Pulse Rate 68 Blood Pressure 129/70 Pulse Oximetry 96 97 97 Oxygen Delivery 05/30/23 23:21 05/30/23 23:26 05/30/23 23:28 Temperature Pulse Rate Blood Pressure Pulse Oximetry 97 97 95 Oxygen Delivery 05/30/23 23:31 05/30/23 23:33 05/30/23 23:38 Temperature Pulse Rate 71 Blood Pressure 132/75 Pulse Oximetry 97 95 Oxygen Delivery 05/30/23 23:45 05/30/23 23:46 05/30/23 23:50 Temperature Pulse Rate 70 Blood Pressure 120/63 Pulse Oximetry 99 100 Oxygen Delivery 05/30/23 23:55 05/31/23 00:00 05/31/23 00:01 Temperature Pu
[2023-05-31] MEDS: fentaNYL CITRATE INJ (*CRX) 100 MCG/2 ML VIAL 50 MCG IV PUSH ×2 (04:00→05:50)
[2023-05-31] MEDS: OXYTOCIN 30 UNITS/NS 500 ML 30 UNITS/500 ML BAG 6 UNITS IV CONT (05:20)
[2023-05-31] MEDS: LACTATED RINGERS 1,000 ML 125 ML IV CONT ×3 (05:20→14:26)
--- NOTE | 2023-05-31 06:38 | PM.OBPNLAB ---
Pain Control Date/time seen: 05/31/23 06:38 Pain control: tolerating well Comments: spontaneously ruptured this a.m.
--- NOTE | 2023-05-31 07:14 | WPDANESEPP ---
Anes - Eval Pre Procedure Procedure: Labor epidural Date/Time: 05/31/23 07:14 Surgeon: Jovita Costa Preop Diagnosis: Abdominal pain with contractions Pre Op Diagnosis: IOL Patient Data Age: 28 Gender: F Height: 1.57 m Weight: 105 kg Last Vital Signs Temp 97.6 F 05/31/23 05:56 Pulse 74 05/31/23 07:01 BP 117/66 05/31/23 07:01 Pulse Ox 99 05/31/23 06:21 O2 Del Method Room Air 05/30/23 21:59 Allergies Allergy/AdvReac Type Severity Reaction Status Date / Time bee venom protein (honey bee) Allergy Unknown Unknown Verified 05/15/23 15:27 ciprofloxacin Allergy Unknown Rash Verified 05/15/23 15:27 erythromycin base Allergy Unknown Swelling Verified 05/15/23 15:27 prednisone Allergy Hives Verified 05/15/23 15:51 POTASSIUM CLAVULANATE Allergy Unknown NAUSEA/VOMI Uncoded 05/15/23 15:27 TING Home Medications Medication Instructions Recorded Confirmed Type vit no.95-ferrous 1 tablet PO DAILY 03/24/23 05/15/23 History fumarate 28 mg-folic acid 800 mcg tablet () Laboratory Tests 05/30/23 05/30/23 05/30/23 22:05 22:05 22:05 WBC 10.8 H K/mm3 (4.5-10.0) RBC 3.78 L M/mm3 (4.2-5.4) Hgb 11.1 L g/dL (12.0-15.0) Hct 34.3 L % (37.0-47.0) MCV 90.7 fl (80-100) MCH 29.4 pg (26-34) MCHC 32.4 g/dl (32-36) RDW 13.2 % (11.5-14.5) Plt Count 206 k/mm3 (150-375) MPV 11.5 H fl (7.4-10.4) Immature Gran % (Auto) 0.9 H % (0-0.5) Neut % (Auto) 65.1 % (45.5-73.1) Lymph % (Auto) 25.3 % (18.3-44.2) [place] % (Auto) 7.5 % (2.6-8.5) Eos % (Auto) 0.7 % (0-4.4) Baso % (Auto) 0.5 % (0.2-1.2) Lymph # (Auto) 2.74 K/mm3 (0.9-3.2) [place] # (Auto) 0.8 H K/mm3 (0.1-0.6) Eos # (Auto) 0.1 K/mm3 (0-0.3) Baso # (Auto) 0.1 K/mm3 (0.0-0.1) Abs Immat Gran (auto) 0.10 H K/mm3 (0.00-0.031) Absolute Neuts (auto) 7.1 H K/mm3 (1.3-6.7) Absolute Nucleated RBC 0.0 K/mm3 (0.0-0.012) Nucleated RBC % 0.0 % (0.0-0.2) Sodium 135 L mmol/L Cancelled (137-145) Potassium 3.8 mmol/L Cancelled (3.4-5.0) Chloride 107 mmol/L (98-107) Carbon Dioxide Anion Gap BUN Creatinine Estim Creat Clear Calc Estimated GFR Glucose Uric Acid Calcium Total Bilirubin AST ALT Alkaline Phosphatase Total Protein Albumin RPR Blood Type Antibody Screen 05/30/23 05/30/23 05/30/23 22:05 22:05 22:05 WBC RBC Hgb Hct MCV MCH MCHC RDW Plt Count MPV Immature Gran % (Auto) Neut % (Auto) Lymph % (Auto) [place] % (Auto) Eos % (Auto) Baso % (Auto) Lymph # (Auto) [place] # (Auto) Eos # (Auto) Baso # (Auto) Abs Immat Gran (auto) Absolute Neuts (auto) Absolute Nucleated RBC Nucleated RBC % Sodium Potassium Chloride Cancelled Carbon Dioxide 23 mmol/L Cancelled (22-30) Anion Gap 5 L mmol/L Cancelled (8-16) BUN 4 L mg/dL (7-17) Creatinine Estim Creat Clear Calc Estimated GFR Glucose Uric Acid Calcium Total Bilirubin AST ALT Alkaline Phosphatase Total Protein Albumin RPR Blood Type Antibody Scr
[2023-05-31 14:45] LABS: Rapid Plasma Reagin Non-Reactive (NonReactive)
[2023-05-31] MEDS: ONDANSETRON INJ 4 MG/2 ML VIAL IV PUSH (15:07)
--- NOTE | 2023-05-31 16:22 | PM.OBPNLAB ---
Pain Control Date/time seen: 05/31/23 16:22 Pain control: tolerating well and epidural Pelvic Exam Dilation (cm): 10 station: +1 Amniotic membrane status: Leaking
[2023-05-31] MEDS: AMPICILLIN 2 GM/NS 100 ML 2 GM/100 ML BAG IVPB (17:53)
[2023-05-31] MEDS: ACETAMINOPHEN 500 MG TABLET 1000 MG PO (17:54)
--- NOTE | 2023-05-31 18:11 | PM.OBPRVD ---
OB - Vaginal Delivery Note Procedure Delivery date: 05/31/23 Events: Gestational Hypertension Induction method: AROM Delivery augmentation: Pitocin Delivery monitor: External FHT and Internal Uterine Route of delivery: Episiotomy description: None Laceration Description: Perineal - 1st Degree Delivery repair: vicryl Quantitative Blood Loss (ml): 61 Anesthesia type: Epidural Disposition: Floor Complications: No immediate complications Baby Date of : 05/31/23 Time of : 17:58 Weeks of gestation at delivery: 38 gender: Male Weight (pounds): 7 Weight (ounces): 11 presentation: vertex position: Right Occiput Anterior Placenta delivery description: Spontaneous Cord Vessel Description: 3 Vessels score one minute: 8 score five minutes: 9
--- NOTE | 2023-05-31 18:13 | PM.DS ---
DS: Admitting Diagnosis Discharge Date 06/02/2023 Admitting Diagnosis Term /gestational hypertension DS: Discharge Diagnosis Discharge Diagnosis (1) Gestational hypertension: Code(s): O13.9 - Gestational [-induced] hypertension without significant proteinuria, unspecified trimester Status: Acute (2) Term : Code(s): Z34.90 - Encounter for supervision of normal , unspecified, unspecified trimester Status: Acute DS: Summary Hospital Course Reason for hospitalization: patient was admitted for induction of labor on 05/31/2023 secondary to elevated blood pressures Hospital Course: patient underwent spontaneous vaginal delivery in successful fashion with the epidural on 05/31/2023 delivering at 5:58 p.m.. Her hospital course thereafter was unremarkable. She remained afebrile she was up, general without complaints. Time Spent with Patient Time attestation: Total time spent providing and/or coordinating discharge services: DS: Data Data Completed and Pending Labs on day of discharge: Labs from last 24 hours 05/30/23 05/30/23 05/30/23 22:05 22:05 22:05 WBC RBC Hgb Hct MCV MCH MCHC RDW Plt Count MPV Immature Gran % (Auto) Neut % (Auto) Lymph % (Auto) [place] % (Auto) Eos % (Auto) Baso % (Auto) Lymph # (Auto) [place] # (Auto) Eos # (Auto) Baso # (Auto) Abs Immat Gran (auto) Absolute Neuts (auto) Absolute Nucleated RBC Nucleated RBC % Sodium Potassium Chloride Carbon Dioxide Anion Gap BUN Creatinine Estim Creat Clear Calc Estimated GFR Glucose Uric Acid Calcium Total Bilirubin AST ALT Alkaline Phosphatase Cancelled Total Protein Cancelled 6.0 L Albumin Cancelled 3.3 L RPR Non-reactive Blood Type O Positive Antibody Screen Negative 05/30/23 05/30/23 05/30/23 22:05 22:05 22:05 WBC RBC Hgb Hct MCV MCH MCHC RDW Plt Count MPV Immature Gran % (Auto) Neut % (Auto) Lymph % (Auto) [place] % (Auto) Eos % (Auto) Baso % (Auto) Lymph # (Auto) [place] # (Auto) Eos # (Auto) Baso # (Auto) Abs Immat Gran (auto) Absolute Neuts (auto) Absolute Nucleated RBC Nucleated RBC % Sodium Potassium Chloride Carbon Dioxide Anion Gap BUN Creatinine Estim Creat Clear Calc Estimated GFR Glucose Uric Acid Calcium Total Bilirubin Cancelled AST Cancelled 24 ALT Cancelled 17 Alkaline Phosphatase 143 H Total Protein Albumin RPR Blood Type Antibody Screen 05/30/23 05/30/23 05/30/23 22:05 22:05 22:05 WBC RBC Hgb Hct MCV MCH MCHC RDW Plt Count MPV Immature Gran % (Auto) Neut % (Auto) Lymph % (Auto) [place] % (Auto) Eos % (Auto) Baso % (Auto) Lymph # (Auto) [place] # (Auto) Eos # (Auto) Baso # (Auto) Abs Immat Gran (auto) Absolute Neuts (auto) Absolute Nucleated RBC Nucleated RBC % Sodium Potassium Chloride Carbon Dioxide Anion Gap BUN Creatinine Estim Creat Clear Calc Estimated GFR Cancelled Glucose Cancelled 116 H Uric Acid 2.5 Calcium Cancelled 8.7 Total Bilirubin 0.4 AST ALT Alkaline Phosphatase Total Protein Albumin RPR Blood Type Antibody Screen 05/30/23 05/30/23 05/30/23 22:05 22:05 22:05 WBC RBC Hgb Hct MCV MCH MCHC RDW Plt Count MPV Immature Gran % (Auto) Neut % (Auto) Lymph % (Auto) [place] % (Auto) Eos % (Auto) Baso % (Auto) Lymph # (Auto) [place] # (Auto) Eos # (Auto) Baso # (Auto) Abs Immat Gran (auto) Absolute Neuts (auto) Absolute Nucleated RBC Nucleated RBC % Sodium Potassium Chloride Carbon Dioxide Anion Gap
[2023-05-31] MEDS: KETOROLAC 30 MG/ML VIAL (*BKC) IV PUSH (18:25)
[2023-05-31] MEDS: OXYTOCIN 30 UNITS/NS 500 ML 30 UNITS/500 ML BAG 125 UNITS IV CONT (18:26)
--- NOTE | 2023-05-31 21:44 | OBPPTRN ---
Patient transferred to post room #281 via wheelchair. Support person present. Oriented to unit, room, information board, rooming in, admission packet and security measures. Patient verbalizes understanding.
[2023-06-01 04:11] LABS: Hematocrit 30.6 % (37.0-47.0); Hemoglobin 9.8 g/dL (12.0-15.0)
[2023-06-01 04:13] VITALS: BP 118/77; PULSE 61; RESP 18; TEMP 36.5; O2SAT 98
[2023-06-01] MEDS: ACETAMINOPHEN 325 MG TABLET 650 MG PO ×2 (05:51→20:01)
--- NOTE | 2023-06-01 07:06 | PM.OBPNVD ---
OB - PN: Subj Subjective Date/time seen: 06/01/23 07:06 Patient comments: no complaints and pain well controlled baby status: doing well OB - PN: Obj Data Labs 06/01/23 03:14 05/30/23 22:05 Labs: Laboratory Results - last 24 hr 05/30/23 06/01/23 22:05 03:14 Hgb 9.8 L Hct 30.6 L RPR Non-reactive OB - PN A/P Plan day: 1 Plan: routine care Time Spent With Patient Time: Total time spent is greater than 50% in coordination of care (as documented) at patient's floor/unit and/or counseling patient: Time with patient: less than 15 minutes Exam Const: General: cooperative, healthy appearing and comfortable Nutritional Appearance: average body habitus Orientation/consciousness: oriented to person, oriented to place and oriented to time HENMT: Head: normal to inspection Resp: Effort & Inspection: normal respiratory effort Cardio: Rate: regular rate Rhythm: regular rhythm Heart sounds: S1 normal heart sound present and S2 normal heart sound present GI: Inspection: normal to inspection
[2023-06-01 07:45] VITALS: BP 97/56; PULSE 67; RESP 16; TEMP 37.1; O2SAT 100
[2023-06-01] MEDS: POLYSACCHARIDE IRON COMPLEX 150 MG CAPSULE PO ×2 (08:30→16:26)
[2023-06-01] MEDS: DOCUSATE SODIUM 100 MG CAPSULE PO ×2 (08:30→16:26)
[2023-06-01] MEDS: IBUPROFEN 600 MG TABLET PO (08:30)
[2023-06-01] MEDS: MULTIVIT/MIN/PREN/FOL AC/IRON TABLET 1 TAB PO (08:30)
--- NOTE | 2023-06-01 10:54 | WPDANLDPN2 ---
Anes-Prog Note L&D Date/Time: 06/01/23 10:54 Comfortable throughout: labor and delivery Neuraxial method: epidural Epidural/Spinal procedure site: clean & non-tender Neuro status: Neuro function grossly intact. Cardiovascular status: normal Respiratory status: normal Airway patency: baseline Mental status: baseline Post-Op hydration status: normal Vital Signs: Last Vital Signs Temp 98.7 F 06/01/23 07:45 Pulse 67 06/01/23 07:45 Resp 16 06/01/23 07:45 BP 97/56 L 06/01/23 07:45 Pulse Ox 100 06/01/23 07:45 O2 Del Method Room Air 05/30/23 21:59 Pain score (VAS): 0/10 I/O: Intake & Output 05/31/23 06/01/23 06/01/23 23:59 07:59 15:59 Output Total 400 Balance -400 Post-procedural complaints: none Patient feedback: Patient satisfied with anesthetic care.
[2023-06-01 12:17] VITALS: BP 108/65; PULSE 63; RESP 16; TEMP 36.6; O2SAT 99
[2023-06-01 17:54] VITALS: BP 114/79; PULSE 73; RESP 16; TEMP 37; O2SAT 100
[2023-06-01 19:30] VITALS: BP 122/82; PULSE 74; RESP 18; TEMP 36.7; O2SAT 100
[2023-06-02] MEDS: POLYSACCHARIDE IRON COMPLEX 150 MG CAPSULE PO (07:52)
[2023-06-02] MEDS: ACETAMINOPHEN 325 MG TABLET 650 MG PO (07:52)
[2023-06-02] MEDS: DOCUSATE SODIUM 100 MG CAPSULE PO (07:52)
[2023-06-02] MEDS: MULTIVIT/MIN/PREN/FOL AC/IRON TABLET 1 TAB PO (07:52)
[2023-06-02 07:55] VITALS: BP 119/73; PULSE 61; RESP 16; TEMP 36.8; O2SAT 100
--- NOTE | 2023-06-02 09:00 | PC.NURSE ---
Patient viewed the discharge video Mother & Baby Care, The First Two Weeks . Patient was given the opportunity and encouraged to ask questions. Patient verbalized understanding of information shared and has been given the mother/baby guide for home reference.
--- NOTE | 2023-06-02 09:19 | PM.OBPNVD ---
OB - PN: Subj Subjective Date/time seen: 06/02/23 09:19 Narrative: Pain OK. Would like to go home. OB - PN: Obj Data Labs 06/01/23 03:14 05/30/23 22:05 OB - PN A/P Plan Comments: A: PPD#2, doing well. P: Home to f/u 6 weeks. Exam Psych: Other: AVSS ABD soft, nontender, fundus firm EXT nontender
[2023-06-05 13:57] VITALS: BP 120/84; PULSE 87; RESP 20; TEMP 36.8; O2SAT 100
== END 2023-06-02 10:37 | disposition home or self-care (01) | DRG 807 ==
LOC: ANHLDR 05-31 18:15 → ANHOB2 05-31 21:55
PROVIDERS: Admitting Provider Obstetrics & Gynecology; PCP Family Medicine; Visit Provider Obstetrics & Gynecology
DX: O13.4 Gestational [pregnancy-induced] hypertension without significant proteinuria, complicating childbirth (principal); Z37.0 Single live birth; Z3A.38 38 weeks gestation of pregnancy; O70.0 First degree perineal laceration during delivery
CPT/HCPCS: 36415; 80053; 84550; 85014; 85018; 85025; 86592; 86850; 86900; 86901; A9270; J0290; J1885; J2405; J2590; J2795; J3010; J7120

== ENCOUNTER 2023-06-29 00:28 | Emergency (ER) | payer BC, SELFPAY ==
[2023-06-29 00:36] VITALS: BP 108/70; PULSE 110; RESP 20; TEMP 37.3; O2SAT 100
[2023-06-29] MEDS: ONDANSETRON HCL ODT 4 MG TABLET PO (00:53)
[2023-06-29] MEDS: cefTRIAXone 1 GM, LIDOCAINE HCL 1% LOCAL INJ 2.1 ML IM (00:53)
--- NOTE | 2023-06-29 00:53 | ED.SKABFB ---
HPI - Skin/Abscess/Foreign Bdy General Chief complaint: Skin/Abscess/Foreign Body Stated complaint: breast pain Source: patient and family Mode of arrival: ambulatory Limitations: no limitations History of Present Illness HPI narrative: This is a 28-year-old female currently nursing and has developed tenderness and erythema around the left breast and nipple area with currently no abscess formation is a very tender and warm and red to touch with a low-grade fever with some nausea with no vomiting no chest pain no shortness of breath. Onset (ago): day(s) Related Data Home Medications Medication Instructions Recorded Confirmed vit no.95-ferrous 1 tablet PO DAILY 03/24/23 06/29/23 fumarate 28 mg-folic acid 800 mcg tablet () Allergies Allergy/AdvReac Type Severity Reaction Status Date / Time bee venom protein (honey bee) Allergy Unknown Unknown Verified 05/15/23 15:27 ciprofloxacin Allergy Unknown Rash Verified 05/15/23 15:27 erythromycin base Allergy Unknown Swelling Verified 05/15/23 15:27 prednisone Allergy Hives Verified 05/15/23 15:51 POTASSIUM CLAVULANATE Allergy Unknown NAUSEA/VOMI Uncoded 05/15/23 15:27 TING Review of Systems Review of Systems: All systems reviewed & are unremarkable except as noted in HPI and below PMFSH Past Medical History Medical History ADHD, predominantly inattentive type Anxiety Dislocated patella Endometriosis with surgery x3 Gout Migraines Morbid obesity and not yet delivered Shingles UTI (urinary tract infection) Surgical History Surgical History History of arthroscopy of knee History of cholecystectomy History of knee surgery rt knee History of wisdom tooth extraction Family History Family History Father Patient's father is in good health Family history of pancreatic disease Hypertension Mother Family history of gynecological problem Patient's mother is in good health Dementia Grandparent Family history of cardiovascular disease Diabetes mellitus Other Family history of lymphoma Social History Social History Smoking status: Never smoker Alcohol intake: current Drinks per week: 1 Substance use: never Do You Feel Safe in your Home?: Yes Lack of Transportation: YES Lack of Food: Never True Current Housing: I Have Housing Concerned About Future Housing: No Difficulty Paying Gas/Electric Bills: No Difficulty Paying for Meds: No Currently Unemployed: No Education: Master's Degree or Higher Difficulty w/ Childcare or Family Care: No Gender identity (if verbalized by the patient): Female Spiritual care concerns: No Exam Const: General: healthy appearing and no acute distress Nutritional Appearance: well nourished Limitations: no limitations Eyes: Conjunctivae: conjunctivae normal Pupils: Equal, round and reactive pupils present Resp: Effort & Inspection: normal respiratory effort Auscultation: clear to auscultation bilaterally Cardio: Rate: regular rate Rhythm: regular rhythm GI: Auscultation: normal bowel sounds Skin: Other: Redness and warmth and tenderness left breast area Course Course Emergency Course: antibiotics administered ceftriaxone 1g IM and Zofran ODT. Vital Signs Vital signs: Vital Signs Temperature 37.3 C 06/29/23 00:36 Pulse Rate 110 H 06/29/23 00:36 Respiratory Rate 20 06/29/23 00:36 Blood Pressure 108/70 06/29/23 00:36 Pulse Oximetry 100 06/29/23 00:36 Oxygen Delivery Room Air 06/29/23 00:36 Temperature 37.3 C 06/29/23 00:36 Pulse Rate 110 H 06/29/23 00:36 Respiratory Rate 20 06/29/23 00:36 Blood Pressure 108/70 06/29/23 00:36 Pulse Oximetry 100 06/29/23 00:36 Oxygen Delive
[2023-06-29 01:03] VITALS: BP 106/60; PULSE 100; RESP 18; O2SAT 99
== END 2023-06-29 01:09 | disposition home or self-care (01) ==
PROVIDERS: Emergency Provider Emergency Medicine; PCP Family Medicine
DX: N61.0 Mastitis without abscess (principal)
CPT/HCPCS: 96372; 99283; A9270; J0696

== ENCOUNTER 2023-11-19 16:01 | Outpatient (CLI) | payer BC, SELFPAY ==
[2023-11-19 19:26] LABS: Basophils Percent Auto 0.6 % (0.2-1.2); Eosinophils Absolute Auto 0.1 K/mm3 (0-0.3); Eosinophils Percent Auto 1.6 % (0-4.4); Hematocrit 42.1 % (37.0-47.0); Hemoglobin 13.3 g/dL (12.0-15.0); Immature Granulocyte Absolute 0.01 K/mm3 (0.00-0.031); Immature Granulocyte Percent A 0.2 % (0-0.5); Lymphocytes Absolute Auto 2.42 K/mm3 (0.9-3.2); Lymphocytes Percent Auto 39.1 % (18.3-44.2); Mean Corpuscular HGB Conc 31.6 g/dl (32-36); Mean Corpuscular Hemoglobin 28.4 pg (26-34); Mean Platelet Volume 11.3 fl (7.4-10.4); Monocytes Absolute Auto 0.6 K/mm3 (0.1-0.6); Neutrophils Absolute Auto 3.1 K/mm3 (1.3-6.7); Neutrophils Percent Auto 49.5 % (45.5-73.1); Platelet Count Result 284 k/mm3 (150-375); Red Blood Count 4.68 M/mm3 (4.2-5.4); Red Cell Distribution Width 13.7 % (11.5-14.5); White Blood Count 6.2 K/mm3 (4.5-10.0)
[2023-11-19 19:40] LABS: Alanine Aminotransferase 24 U/L (6-35); Albumin Level 4.3 g/dL (3.5-5.1); Alkaline Phosphatase 93 U/L (38-126); Anion Gap 5 mmol/L (4-12); Aspartate Amino Transferase 54 U/L (14-36); Bilirubin,Total 0.9 mg/dL (0.2-1.3); Blood Urea Nitrogen 12 mg/dL (7-17); Calcium 9.2 mg/dL (8.4-10.2); Carbon Dioxide 31 mmol/L (22-30); Chloride 104 mmol/L (98-107); Estimated Glomerular Filt Rate > 60; Glucose 77 mg/dL (65-110); Potassium 4.1 mmol/L (3.4-5.0); Sodium 140 mmol/L (137-145); Uric Acid 3.4 mg/dL (2.5-7.5)
== END 2023-11-19 16:02 | disposition home or self-care (01) ==
LOC: ANHGOSHLAB 16:03
PROVIDERS: PCP Family Medicine; Visit Provider Family Medicine
DX: E16.2 Hypoglycemia, unspecified (principal); O13.9 Gestational [pregnancy-induced] hypertension without significant proteinuria, unspecified trimester; M10.9 Gout, unspecified; Z3A.00 Weeks of gestation of pregnancy not specified
CPT/HCPCS: 36415; 80053; 84443; 84550; 85025

== ENCOUNTER 2024-03-25 14:27 | Emergency (ER) | payer OTHER, SELFPAY ==
--- NOTE | ~2024-03-25 | CT_ITS ---
EXAMINATION: CT brain wo con DATE: 03/25/2024 15:58 INDICATION: Headache. TECHNIQUE: Computed tomography (CT) of the head was performed without intravenous contrast. The mA wa s adjusted according to patient size. Iterative reconstruction technique was employed. The dose-lengt h product was 681.00 mGy-cm. COMPARISON: None FINDINGS: There is no intracranial hemorrhage, acute infarction, or abnormal intracranial mass lesion . The ventricles are normal in size. The paranasal sinuses are clear. The orbits are normal. The mast oid air cells are normal. IMPRESSION: 1. Normal brain. Reviewed, dictated and finalized at location A. IMPRESSION: 1. Normal brain.
[2024-03-25 14:33] VITALS: BP 134/89; PULSE 59; RESP 18; TEMP 36.1; O2SAT 100
--- NOTE | 2024-03-25 15:21 | ED.HA ---
HPI - Headache General Chief Complaint: Headache <Sagrario Caballero, AIR SAW OPERATOR - Last Filed: 03/25/24 15:25> Stated Complaint: MIGRAINES <Sagrario Caballero APRN - Last Filed: 03/25/24 15:25> Time Seen by Provider: 03/25/24 15:15 <Sagrario Caballero AIR SAW OPERATOR - Last Filed: 03/25/24 15:25> Focused HPI: Patient is a 29-year-old female who presents to the ER with a 2 week history of headache. She reports she has a history of migraines and is on amitriptyline but this is the worst headache she has ever had in her life. Patient reports she has a history of preeclampsia but normally her blood pressure is within normal limits. Patient reports she has multiple episodes of a warm rushing feeling that starts in her neck and goes up to her head. Patient reports she has also had multiple episodes of vision changes (dimming lights/shades coming down in her eyesight). She has not loss consciousness but feels lightheaded periodically. Patient reports she has never had a CT scan of her head. GENERAL: Well-appearing, well-nourished, and in no acute distress. HEAD: Normocephalic, atraumatic. CHEST: Clear to auscultation. ?No respiratory distress. HEART: Regular rate and rhythm.? NEURO: ?Alert and oriented x3. Patient screened in triage and initial orders placed.? ?Additional care and disposition to be based upon?diagnostic testing and treatment. <Sagrario Caballero AIR SAW OPERATOR - Last Filed: 03/25/24 15:25> History of Present Illness HPI Narrative: 29-year-old female history of migraines presented emergency department for evaluation for a migraine headache. Patient states that she used to have an aura that was bright spots and then ceased have or as that were black spots and patient describes a change in vision today that lasted just a few minutes and then it was followed by her typical migraine pain. Patient states that she does follow-up with her primary care physician for her migraines and is on preventative and abortive medications for this but patient was not at home when the migraine started and she came here so she did not take the abortive medication. Upon arrival emergency department patient appears to be in no significant distress. <Jean-Pierre Page MD - Last Filed: 03/25/24 21:37> Related Data Home Medications: Home Medications Medication Instructions Recorded Confirmed vit no.95-ferrous 1 tablet PO DAILY 03/24/23 06/29/23 fumarate 28 mg-folic acid 800 mcg tablet () <Sagrario Caballero APRN - Last Filed: 03/25/24 15:25> Allergies/Adverse Reactions: Allergies Allergy/AdvReac Type Severity Reaction Status Date / Time bee venom protein (honey bee) Allergy Unknown Unknown Verified 03/25/24 14:38 ciprofloxacin Allergy Unknown Rash Verified 03/25/24 14:38 erythromycin base Allergy Unknown Swelling Verified 03/25/24 14:38 prednisone Allergy Hives Verified 03/25/24 14:38 POTASSIUM CLAVULANATE Allergy Unknown NAUSEA/VOMI Uncoded 03/25/24 14:38 TING <Sagrario Caballero APRN - Last Filed: 03/25/24 15:25> Review of Systems Review of Systems: All systems reviewed & are unremarkable except as noted in HPI and below <Jean-Pierre Page MD - Last Filed: 03/25/24 21:37> PMFSH Past Medical History Medical History: Medical History (Updated 03/25/24 @ 17:55 by Jean-Pierre Page MD) ADHD, predominantly inattentive type Anxiety Dislocated patella Endometriosis with surgery x3 Gout Migraines Morbid obesity and not yet delivered Shingles UTI (urinary tract infection) <Sagrario Caballero APRN - Last Filed: 03/25/24 15:25> Surgical History Surgical History: Surgical History History of arthroscopy of knee History of cholecystectomy History of knee surgery rt knee History of wisdom tooth extraction <Sagrario Caballero APRN - Last Filed: 03/25/24 15:25> Family History Family History:
[2024-03-25] MEDS: ONDANSETRON HCL ODT 4 MG TABLET PO (15:39)
[2024-03-25] MEDS: HYDROcodone/acetaminophen (*CRX) 5-325 MG TABLET 1 TAB PO (15:39)
[2024-03-25 15:44] LABS: Basophils Percent Auto 0.9 % (0.2-1.2); Eosinophils Absolute Auto 0.1 K/mm3 (0-0.3); Eosinophils Percent Auto 1.5 % (0-4.4); Hematocrit 41.3 % (37.0-47.0); Hemoglobin 13.3 g/dL (12.0-15.0); Lymphocytes Absolute Auto 1.85 K/mm3 (0.9-3.2); Lymphocytes Percent Auto 40.9 % (18.3-44.2); Mean Corpuscular HGB Conc 32.2 g/dl (32-36); Mean Corpuscular Hemoglobin 28.8 pg (26-34); Mean Corpuscular Volume 89.4 fl (80-100); Mean Platelet Volume 10.5 fl (7.4-10.4); Monocytes Absolute Auto 0.4 K/mm3 (0.1-0.6); Monocytes Percent Auto 7.7 % (2.6-8.5); Neutrophils Absolute Auto 2.2 K/mm3 (1.3-6.7); Platelet Count Result 264 k/mm3 (150-375); Red Blood Count 4.62 M/mm3 (4.2-5.4); Red Cell Distribution Width 12.6 % (11.5-14.5); White Blood Count 4.5 K/mm3 (4.5-10.0)
[2024-03-25 16:04] LABS: Alanine Aminotransferase 24 U/L (6-35); Albumin Level 4.5 g/dL (3.5-5.1); Alkaline Phosphatase 91 U/L (38-126); Anion Gap 7 mmol/L (4-12); Aspartate Amino Transferase 30 U/L (14-36); Bilirubin,Total 0.9 mg/dL (0.2-1.3); Blood Urea Nitrogen 8 mg/dL (7-17); Calcium 9.2 mg/dL (8.4-10.2); Carbon Dioxide 31 mmol/L (22-30); Chloride 102 mmol/L (98-107); Estimated CRCL calculation 95 ml/min; Estimated Glomerular Filt Rate > 60; Glucose 96 mg/dL (65-110); Sodium 140 mmol/L (137-145)
[2024-03-25 16:23] LABS: Influenza A QL RT-PCR Negative (Negative); Influenza B QL RT-PCR Negative (Negative); RSV RNA, RT-PCR Negative (Negative); SARS-CoV-2 RNA PCR Negative (Negative)
[2024-03-25] MEDS: SODIUM CHLORIDE 0.9% IV 1,000 ML 999 ML IV CONT (16:53)
[2024-03-25] MEDS: PROCHLORPERAZINE EDISYLATE 10 MG/2 ML VIAL IV PUSH (16:54)
[2024-03-25] MEDS: KETOROLAC 15 MG/ML VIAL (*BKC) IV PUSH (16:54)
[2024-03-25] MEDS: diphenhydrAMINE HCl INJ 50 MG/ML VIAL 25 MG IV PUSH (16:57)
== END 2024-03-25 18:16 | disposition home or self-care (01) ==
PROVIDERS: Registered Nurse; Emergency Provider Emergency Medicine; PCP Family Medicine
DX: G43.109 Migraine with aura, not intractable, without status migrainosus (principal); Z20.822 Contact with and (suspected) exposure to COVID-19; F90.9 Attention-deficit hyperactivity disorder, unspecified type; F41.9 Anxiety disorder, unspecified
CPT/HCPCS: 36415; 70450; 80053; 85025; 87637; 96361; 96374; 96375; 99284; A9270; J0780; J1200; J1885; J7030

== ENCOUNTER 2024-10-30 15:31 | Emergency (ER) | payer OTHER, SELFPAY ==
--- OUTSIDE RECORDS SUMMARY | 2024-10-30 15:33 | XMS_ITS | Clinical Summary ---
Author Organization [facility] Address [address] [place] [address] Care Team Providers Care Dry Pan Charger Name Role Phone Travis Pruett MD Primary Care Provider [phone] Allergies Active Allergy Reactions Criticality Noted Date Comments Amoxicillin-Pot Clavulanate Nausea only,Other (See comments),Rash Medium 08/17/2020 Reaction: Other Bee Venom Protein (Honey Bee) Anaphylaxis High 10/20/2011 Ciprofloxacin Other (See comments),Rash Medium 08/17/2020 Reaction: SKIN TURNED RED AND PEELED Erythromycin Edema,Hives,Itching, S welling Medium 01/03/2010 Swelling, bruising, rash, unable to walk. Erythromycin Base Rash Medium 08/17/2020 Prednisone Nausea only,Other (See comments),Rash Medium 08/17/2020 Reaction: Other Medications escitalopram (LEXAPRO) 20 mg tabletIndicatio ns:Generalized Anxiety Disorder Take 0.5 tablets (10 mg total) by mouth nightly Active rizatriptan (MAXALT) 10 mg tablet Take 1 tablet (10 mg total) by mouth once as needed for migraine 1 Active amitriptyline (ELAVIL) 10 mg tablet Take 10 mg by mouth nightly at bedtime 2 Active meloxicam (MOBIC) 15 mg tabletIndicatio ns:Patellofemor al instability, left Take 1 tablet (15 mg total) by mouth daily 30 tablet 3 Active Additional Information Patient not taking.Reported on 10/14/2024 atogepant (Qulipta) 30 mg tablet Take 30 mg by mouth daily Active levonorgestrel (KYLEENA INTRAUTERINE) by intrauterine route Active Active Problems Problem Noted Date Diagnosed Date Patellofemoral instability, left 04/12/2021 Acute pharyngitis 03/17/2021 Suspected 2019-nCoV infection 03/17/2021 Systemic viral illness 03/17/2021 Patellofemoral instability of left knee with ephraim n 03/17/2021 Dislocation of left patella 02/17/2021 Acute pain of left knee 02/03/2021 Injury of left knee 02/03/2021 Effusion of left knee 02/03/2021 Dyspnea 02/10/2020 Molluscum contagiosum 01/06/2019 Encounter for gynecological examination without abnormal finding 01/06/2019 Chest pain 04/19/2018 Assessment & Plan (05/05/2018 1:42 PM UNDERWRITING CONSULTANT): Chest pain is rare and atypical. Observe Assessment & Plan (04/19/2018 9:24 AM UNDERWRITING CONSULTANT): Underwent exercise stress test and was negative at 75 percent of the maximum predicted heart rate. Seems to be atypical. Order echo to assess Syncope and collapse 04/15/2018 Assessment & Plan (05/05/2018 1:42 PM UNDERWRITING CONSULTANT): No further recurrence of syncope. Unremarkable echocardiogram and event monitor. Patient has increase salt and water intake. Normal EKG. Suspect orthostatic hypotension. I will order CBC and comprehensive metabolic panel to complete the workup. Assessment & Plan (04/19/2018 9:26 AM UNDERWRITING CONSULTANT): EKG today was normal with normal QTC interval. Will order echocardiogram to assess cardiac structure and function. Will order 10 day event monitor to rule out significant arrhythmias. Her blood pressure runs low with evidence of orthostatics at her primary care doctor visit. Also warned her that she should not be driving now. I advised patient that once she feels a warning that she is about to pass out, then she should lie down on the floor. Advised patient to increase salt and water intake. 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 Encounters Date Type Department Care Team Description 10/24/2024 10:50 AM CDT Anesthesia Event [facility] [address] [place] [address] Jasper Rendon, 10/24/2024 10:30 AM CDT - 10/24/2024 11:00 AM CDT Surgery [facility] [address] [place] [address] Linsey Mills MD COLON BIOPSY 10/24/2024 9:16 AM CDT - 10/24/2024 12:00 PM CDT Hospital Encounter [facility] [address] [place] [address] Linsey Mills MD Change in bowel habits Discharge Disposition: Discharge to home or self care from Last 3 Months Surgical History Surgery Date Site/Laterality Comments ME EXPLORATORY LAPAROTOMY CELIOTOMY W/WO BIOPSY SPX Exploratory Laparotomy - for endometriosis (Added by Conv) KNEE SURGERY 06/11/2012 - 06/10/[address] Matthews ME TONSILLECTOMY PRIMARY/SECONDARY <AGE 12 Tonsillectomy - (Added by TW Conv) WISDOM TOOTH EXTRACTION Oral Surgery Tooth Extraction [place] Tooth - (Added by TW Conv) ME HYSTEROSCOPY ENDOMETRIAL ABLATION Hysteroscopy With Endometrial Ablation - (Added by TW Conv) ME COLPOSCOPY CERVIX UPPER/ADJACENT VAGINA Colposcopy - (Added by TW Conv) CHOLECYSTECTOMY 06/11/2017 - 06/10/2018 KNEE SURGERY COLONOSCOPY Medical History Medical History Date Comments Personal history of other me ntal and behavioral disorders History of depression - (Add ed by TW Conv) Personal history of other di seases of the musculoskeletal system and connective tissue History of arthritis - (Adde d by TW Conv) Personal history of other di seases of the musculoskeletal system and connective tissue History of backache - (Added by TW Conv) Personal history of other sp ecified conditions History of chest pain - macario es CP/SOB Chondromalacia patellae Chondrom alacia of patella - (Added by TW Conv) Plica syndrome of knee Plica syn drome - (Added by TW Conv) Primary osteoarthritis of one knee Osteoarthritis, localized, knee - (Added by TW Conv) Effusion of right knee Effusion of right knee - (Added by TW Conv) Pain in right knee Chronic pain of right knee - (Added by TW Conv) Personal history of other di seases of the female genital tract History of vaginal pruritus - (Added by TW Conv) Personal history of other sp ecified conditions History of abnormal cervical Papanicolaou smear - (Added by TW Conv) Encounter for follow-up exam ination after completed treatment for conditions other than malignant neoplasm Follow up - (Added by TW Con v) Food intolerance GREASY FOOD Headache migraines- ~2x/w yurok Anemia 2008 pt denies, repor ts no issues Last menstrual period (LMP) > 10 days ago 12/16/2020 Shinneal 2013 resolved Endometriosis determined by laparoscopy TWICE LAST IN 2013 Anxiety situational Family History Medical History Relation Name Comments Arthritis Father Oscar carrera Family history of arthritis - (Added by TW Conv) Hypertension Father Oscar carrera Family history of hypertension - (Added by TW Conv) Diabetes type II Maternal Grandfather Daniel janine christopher history of type 2 diabetes mellitus - Relation: Grandfather (Added by TW Conv) Hypertension Maternal Grandfather Daniel janine Family history of hypertension - Relation: Grandfather (Added by TW Conv) Breast cancer Maternal Great-Grandmother Family history of malignant neoplasm of breast - (Added by TW Conv) Ovarian cancer Maternal Great-Grandmother Family history of ovarian cancer - (Added by TW Conv) Arthritis Mother Joni cooleyefer Family histor y of arthritis - (Added by TW Conv) Osteoporosis Mother Joni cooleyefer Family histor y of osteoporosis - (Added by TW Conv) Breast cancer Other Family history of malignant neoplasm of breast - Relation: Aunt (Added by TW Conv) Heart attack Paternal Grandfather Fantasma carrera Relation Name Status Comments Father Oscar carrera Alive Maternal Grandfather Daniel mehta Maternal Great-Grandmother Mother Joni carrera Alive Other Paternal Grandfather Fantasma carrera Social History Tobacco Use Types Packs/Day Years Used Date Smoking Tobacco: Never Smokeless Tobacco: Never Alcohol Use Standard Drinks/Week Comments Yes 0 (1 standard drink = 0.6 oz pur e alcohol) SOCIAL DRINKER Humiliation, Afraid, Rape, and Kick questionnair e Answer Date Recorded Fear of Current or Ex-Partner No Emotionally Abused No 07/13/2020 Physically Abused No 07/13/2020 Sexually Abused No 07/13/2020 Social Connection and Isolation Panel [NHANES] A nswer Date Recorded Frequency of Communication with Friends and Fami ly Not on file 07/13/2020 Frequency of Social Gatherings with Friends and Family Not on file 07/13/2020 Attends [employer] Services Not on file 07/13 Active Member of Clubs or Organizations Not on f ile 07/13/2020 Attends Club or Organization Meetings Not on salvatore e 07/13/2020 Marital Status Never 07/13/2020 AUDIT-C Answer Date Recorded Q1: How often do you have a drink containing alc ohol? Monthly or less 10/14/2024 Q2: How many drinks containi ng alcohol do you have on a typical day when you are drinking? 1 or 2 10/14/2024 Q3: How often do you have si x or more drinks on one occasion? Never 10/14/2024 Exercise Vital Sign Answer Date Recorde d Days of Exercise per Week 7 days 2020 Minutes of Exercise per Session 150+ min 07/13/2020 Personal Safety Answer Date Recorded Have you ever been in or are you currently in a harmful physical or emotional relationship or is someone making you feel afraid or unsafe? Denies 10/24/2024 Comments No Sex and Gender Information Value Date Recorded Sex Assigned at Not on file Legal Sex Female 12:26 PM UNDERWRITING CONSULTANT Gender Identity Not on file Sexual Orientation Not on file Obstetrics History Para Term AB IAB SAB Ectopic Multiple Livin g Live Births 1 1 1 Date Outcome GA Total Labor Labor/2nd/3rd Weight Sex Type Anes PTL Quin A1 A5 Name Clin 2014 SAB Last Filed Vital Signs Vital Sign Reading Time Taken Comments Blood Pressure 105/74 10/24/2024 11:30 AM CDT Pulse 41 10/24/2024 11:30 AM CDT Temperature 36.2 C (97.1 F) 10/24/2024 11:17 AM CDT Respiratory Rate 17 10/24/2024 11:30 AM CDT Oxygen Saturation 100% 10/24/2024 11:30 AM CDT Inhaled Oxygen Concentration - - Weight 91.6 kg (202 lb) 10/24/2024 9:23 AM CDT Height 157.5 cm (5' 2 ) 12/26/2021 8:00 AM CDT Body Mass Index 36.95 12/26/2021 8:00 AM CDT Plan of Treatment Health Maintenance Due Date Last Done Comments Depression Screening 1995 Hepatitis C Screening 1995 DTaP/Tdap/Td Vaccine (1 - Tdap) 02/16/2004 Varicella Vaccines (1 of 2 - 13+ 2-dose series) 2006 Hepatitis B Screening 2011 Cervical Cancer Screening 12/26/20222021, 07/13/2020, 04/24/2017, Additional history exists Regular Well Visit/Exam 18-64 12/26/2022 12/26/2021, 07/13/2020, 01/06/2019 Covid-19 Vaccine ( season) 2024 07/31/2020, 07/03/2020 Influenza Vaccine (Season Ended) 2025 05/17/2018 HPV Vaccines Aged Out No longer eligi ble based on patient's age to complete this topic Pneumococcal vaccine <65 Aged Out No longer eligible based on patient's age to complete this topic Medical Devices Implanted Type Area Proof Sorter Device Identifier Shelf Expiration Date Model / Serial / Lot Clip Clip Liver [employer] Ar-[id number] 4.5mm 42.5mm Self Tap Thread Knee Bicortical Low Profile Post - [id number] Implanted:Qty: 1 on 05/11/2021 by Jose Matthews IV, MD at [facility] Left: Knee [employer] AR-[id number] / / [employer] Ar-1365-45 4.5mm 45mm Self Tap Thread Knee Bicortical Low Profile Post - [id number] Implanted:Qty: 1 on 05/11/2021 by Jose Matthews IV, MD at [facility] [place] Left: Knee [employer] AR-1365-45 / / Procedures Procedure Name Priority Date/Time Associated Diagnosis Comments SURGICAL PATHOLOGY Routine 10/24/2024 11 :00 AM CDT Change in bowel habits COLONOSCOPY 10/24/2024 10:50 AM CDT COLON BIOPSY 10/24/2024 10:50 AM CDT Change in bowel habits HCG, BLOOD, QUANTITATIVE STAT 10/24/2024 9:57 AM CDT PAP AND HIGH RISK HPV, REFLEX TO GENOTYPING Routine 12/26/2021 8:50 AM CDT Well woman exam with routine gynecological exam from Last 3 Months or Most Recently Relevant to Health Maintenance Results * Surgical pathology (10/24/2024 11:00 AM CDT) Tissue (Colon, Biopsy) 10/24/2024 11:00 AM CDT Comment:Cold bx Tissue specimen (specimen) (Colon, Biopsy) 10/24/2024 11:03 AM CDT Comment:Cold bx Narrative PATHOLOGY [facility] - 10/27/2024 4:38 PM CDT [facility] Department of Pathology [address] [place] [address] Note to Patients: This report may contain a detailed description of human tissue sent by a health care provider to the laboratory for pathologic evaluation. The content of this report is essential for diagnosis and may provide important critical findings. This information may be unfamiliar to patients to review without a medical professional present. It is advised that the patient review this report in the presence of a health care provider who can answer questions and explain the details. Final Report Patient Name: CURTIS ESQUIVEL : 1995 (Age: 29) Gender: F Address: [address] [place] [address] Hospital #: [id number] Service: Surgery Location: Patient Type: [facility] Taken: 10/24/2024 Received: 10/24/2024 Accessioned: 10/24/2024 Reported: 10/27/2024 Physician(s): Leslie Santos M.D. Diagnosis: A. Small intestine, terminal ileum, biopsy: - Ileal mucosa with no significant abnormality. B. Colon, random biopsy: - Colonic mucosa with focal active colitis (focal cryptitis). - Features of chronic mucosal injury are not seen. Diagnosis Comment: Active colitis without features of chronic mucosal injury may be due to infection, adverse drug reaction (e.g. NSAIDs), diverticular disease associated colitis, self-limited colitis as well as early idiopathic chronic inflammatory bowel disease (ulcerative colitis versus Crohn s disease). Correlation with stool studies and clinical history may be helpful. If the patient remains symptomatic, repeat examination of the colon and terminal ileum may be indicated. Elder Guzman MD, PHD Report Electronically Reviewed and Signed Out By Elder Guzman MD, PHD 10/27/2024 16:38:52 Specimen(s) Received: A: Terminal ileum biopsy B: Random colon biopsy Microscopic Description: Unless gross-only is specified, the final diagnosis for each specimen is based on a microscopic examination of each tissue sample. Clinical History: The patient is a 29-year-old woman with change in bowel habits. Operative procedure: Colonoscopy with biopsy. Gross Description Received in two formalin jars labeled with the patient's identifiers. A. Labeled terminal ileum biopsy and consists of three ford-pink tissue fragments ranging from 0.2-0.3 cm. Entirely submitted. Labeled A1. Jar 0. B. Labeled random colon biopsy and consists of five ford-pink tissue fragments ranging from 0.2-0.6 cm. Entirely submitted. Labeled B1. Jar 0. jjb/10/24/2024 12:25 GLORIA Elkins, RYAN [facility] Microscopic slide review and interpretation for this case was performed at [facility], Department of Surgical Pathology, [address] [facility], [place] [id number], [place] [address] CLIA # [id number] Linsey Mills MD LAB PATHOLOGY ORDERABLES Final R esult PATHOLOGY [facility] * Colonoscopy (10/24/2024 10:50 AM CDT) Anatomical Region Laterality Modality Other Narrative Procedure Note Linsey Mills MD - 10/24/2024 10:50 AM CDT [facility]OS[facility] Patient Name: Curtis Esquivel Procedure Date: 10/24/2024 10:50 AM Date of : 1995 Admit Type: Outpatient Age: 29 Gender: Female Attending MD: Linsey Mills M.D. Room: [facility] ENDOSCOPY ROOM 05 Note Status: Finalized Procedure: Colonoscopy Indications: Change in bowel habits Referring MD: Providers: Linsey Mills M.D. Medicines: See the Anesthesia note for documentation of the administered medications Complications: No immediate complications. Estimated Blood Loss: Estimated blood loss was minimal. Procedure: The benefits, risks and alternatives of theprocedure and sedation were discussed and informed consentwas obtained. All questions were answered. Please referto the signed informed consent document in the medical record. The scope was passed under direct vision.The CF-[id number] colonoscope was introduced through theanus and advanced to the cecum, identified byappendiceal orifice and ileocecal valve. The colonoscopy was performed without difficulty. The patient tolerated the procedure well. The quality of the bowel preparation was adequate. Findings: The perianal and digital rectal examinations were normal. The terminal ileum appeared normal. Biopsies were taken with a cold forceps for histology. The colon (entire examined portion) appeared normal. Biopsies weretaken with a cold forceps for histology. Anal papilla(e) were found on retroflexion. Impression: - The examined portion of the ileum was normal. Biopsied. - The entire examined colon is normal. Biopsied. Recommendation: - Repeat colonoscopy at age 43 for screeningpurposes. Linsey Mills M.D. Linsey Mills M.D. 10/24/2024 11:46:43 AM . Number of Addenda: 0 Note Initiated On: 10/24/2024 10:50 AM Recognized by the [employer] for promoting quality in endoscopy Linsey Mills MD ENDOSCOPY PROCEDURES Final Resul t * hCG, blood, quantitative (10/24/2024 9:57 AM CDT) Pathologist [facility] hCG, quant <5.0 0.0 - 5.0 IUnits/L Comment: Interpretive Data Male: < 5 IU/L Non- premenopausal Female: <5 IU/L The Master hCG Beta Quant assay procedure was used. Results from different manufacturers or methods may not be comparable. Serial testing should be performed using the same method. Interpretive Data was last revised on 2023 Blood 10/24/2024 9:57 AM CDT 10/24/2024 10:00 AM CDT Jasper Rendon DO LAB BLOOD ORDERABLES Final Re sult [id number] [facility] Department [place] [address] * Pap and High Risk HPV, reflex to Genotyping (12/26/2021 8:50 AM CDT) Pathologist [facility] CLINICAL INFORMATION: SCREENING HX OF [place] 1 [facility] LMP 7/ [facility] Previous Pap INFORMATION NOT PROVIDED [facility] Prev. Bx INFORMATION NOT PROVIDED [facility] SOURCE: Cervix, Endocervix [facility] Pap, specimen adequacy Satisfactory for evaluation. Endocervical/shoemaker sformation zone component present. [facility] HPV interp Negative for intraepithelial lesion or malignancy. [facility] Infection: Fungal organisms morphologically consistent with Aline spp. [facility] Repairer Hairspring ABC, CT(ASCP) CT screening location: [place] [address] [address] [id number] [facility] Review fisher trammel net AMW, CT(ASCP) CT screening location: [place] [address] [address] [place] [place] [id number] [facility] Comment [facility] Comment: EXPLANATORY NOTE: The Pap is a screening test for cervical cancer. It is not a diagnostic test and is subject to false negative and false positive results. It is most reliable when a satisfactory sample, regularly obtained, is submitted with relevant clinical findings and history, and when the Pap result is evaluated along with historic and current clinical information. Human papillomavirus DNA, High Risk E6/E7 Not Detected NOT DETECTED [facility] Comment: Not Detected High Risk HPV types (16,18,31,33,35,39,45,51,52, 56,58,59,66,68) were not detected. Other HPV types which cause anogenital lesions may be present. The significance of the other types of HPV in malignant processes has not been established. Methodology: Real Time PCR Thin prep 12/26/2021 8:50 AM CDT 12/27/2021 4:45 AM CDT us Liliana Whipple MD LAB CYTOLOGY ORDERABLES Final Re sult [facility] [address] [place] [address] [facility] [employer]/[facility] [address] [place] [address] from Last 3 Months or Most Recently Relevant to Health Maintenance Insurance [facility] H[facility]PPO Address: [address] [address] [employer] [facility] * Guarantor: OTHER Account Type Relation to Patient Date of Phone Billing Address Workers Comp Employer WORKERS COMPENSATION GENERIC WORKERS COMPENSATION GENERIC Advance Directives For more information, please contact: [phone] * Full Code (Latest Code Status on File) Date Activated Date Inactivated Comments 05/11/2021 11:55 AM 05/11/2021 5:38 PM Care Teams Dry Pan Charger Relationship Specialty Start Date End Date Travis Pruett MD PCP - General 09/24/16
--- OUTSIDE RECORDS SUMMARY | 2024-10-30 15:33 | XMS_ITS | Referral Summary ---
Author Organization [facility] Address [address] [place] [address] Care Team Providers Care Adapted Physical Education Specialist Name Role Phone Travis Pruett MD Primary Care Provider [phone] Encounters Date Type Department Care Team Description 10/24/2024 10:50 AM CDT Anesthesia Event [facility] GI [facility] [address] [place] [address] Jasper Rendon, 10/24/2024 10:30 AM CDT - 10/24/2024 11:00 AM CDT Surgery [facility] [address] [place] [address] Linsey Mills MD COLON BIOPSY 10/24/2024 9:16 AM CDT - 10/24/2024 12:00 PM CDT Hospital Encounter [facility] [address] [place] [address] Linsey Mills MD Change in bowel habits Discharge Disposition: Discharge to home or self care from Last 3 Months Allergies Active Allergy Reactions Criticality Noted Date [...] 04/19/2018 Assessment & Plan (05/05/2018 1:42 PM MOLD YARD WORKER): Chest pain is rare and atypical. Observe Assessment & Plan (04/19/2018 9:24 AM MOLD YARD WORKER): Underwent exercise stress test and was negative at 75 percent of the maximum predicted heart rate. Seems to be atypical. Order echo to assess Syncope and collapse 04/15/2018 Assessment & Plan (05/05/2018 1:42 PM MOLD YARD WORKER): No further recurrence of syncope. Unremarkable echocardiogram and event monitor. Patient has increase salt and water intake. Normal EKG. Suspect orthostatic hypotension. I will order CBC and comprehensive metabolic panel to complete the workup. Assessment & Plan (04/19/2018 9:26 AM MOLD YARD WORKER): EKG today was normal with normal QTC [...] 04/24/2017 Human papilloma virus (HPV) infection 10/28/2015 Social History Tobacco Use Types Packs/Day Years [...] and Family Not on file 07/13/2020 Attends [employer] Not on file 07/13 Active Member [...] on file Legal Sex Female 12:26 PM MOLD YARD WORKER Gender Identity Not on file Sexual Orientation Not on file Last Filed Vital Signs Vital Sign Reading [...] 12/26/2021 8:00 AM CDT Plan of Treatment Not on file Medical Devices Implanted Type Area Tank Hoop Bender Device Identifier Shelf Expiration Date Model / Serial / Lot Clip Clip Liver [employer] Ar-1365-425 4.5mm 42.5mm Self Tap Thread Knee Bicortical Low Profile Post - [id number] Implanted:Qty: 1 on 05/11/2021 by Jose Matthews IV, MD at [facility] [place] Left: Knee [employer] AR-1365-425 / / [employer] Ar-1365-45 4.5mm 45mm Self Tap Thread Knee Bicortical Low Profile Post - [id number] Implanted:Qty: 1 on 05/11/2021 by Jose Matthews IV, MD at [facility] [place] Left: Knee [employer] AR-1365-45 / / [...] 11:03 AM CDT Comment:Cold bx Narrative PATHOLOGY [facility] - 10/27/2024 4:38 PM CDT [facility] Department of Pathology [address] [place] [address] Note to Patients: This report may contain [...] : 1995 (Age: 29) Gender: F Address: [address] [place] [address] Hospital #: [id number] Service: Surgery Location: Patient Type: [facility] OUTPATIENT Taken: 10/24/2024 Received: 10/24/2024 Accessioned: 10/24/2024 Reported: 10/27/2024 Physician(s): Linsey Mills M.D. Travis Pruett M.D. Diagnosis: A. Small intestine, terminal ileum, [...] cm. Entirely submitted. Labeled B1. Jar 0. [facility]/10/24/2024 12:25 GLORIA Elkins, PA (ASCP) Microscopic slide review and interpretation for this case was performed at [facility], Department of Surgical Pathology, [address] [facility], [id number], [place] [address] CLIA # [id number] Linsey Mills MD LAB PATHOLOGY ORDERABLES Final R esult PATHOLOGY [facility] * Colonoscopy (10/24/2024 10:50 AM CDT) Anatomical Region Laterality Modality Other Narrative Procedure Note Linsey Mills MD - 10/24/2024 10:50 AM CDT [facility] GI ENDOSCOPY Patient Name: Curtis Esquivel Procedure Date: 10/24/2024 10:50 AM Date of : 1995 Admit Type: Outpatient Age: 29 Gender: Female Attending MD: Linsey Mills M.D. Room: [facility] ENDOSCOPY ROOM 05 Note Status: Finalized [...] On: 10/24/2024 10:50 AM Recognized by the [place] [employer] for promoting quality in endoscopy Linsey Mills MD ENDOSCOPY PROCEDURES Final Resul t * hCG, blood, quantitative (10/24/2024 9:57 AM CDT) hCG, quant <5.0 0.0 - 5.0 IUnits/L [...] DO LAB BLOOD ORDERABLES Final Re sult JOSEPH [address] [facility] Department [place] [address] * Pap and High Risk HPV, reflex to Genotyping (12/26/2021 8:50 AM CDT) CLINICAL INFORMATION: SCREENING HX OF [place] 1 [facility] LMP 7/6 [facility] Previous Pap INFORMATION NOT PROVIDED [facility] Prev. Bx INFORMATION NOT PROVIDED [facility] SOURCE: Cervix, Endocervix [facility] Pap, specimen adequacy Satisfactory for evaluation. Endocervical/shoemaker sformation zone component present. [facility] HPV interp Negative for intraepithelial lesion or malignancy. [facility] Infection: Fungal organisms morphologically consistent with Aline spp. [facility] Net Technical Architect ABC, CT(ASCP) CT screening location: [place] [address] Administration ROSITA Collins [id number] [place] [address] Review cath lab manager AMW, CT(ASCP) CT screening location: [place] [address] Administration [place] [phone] [facility] Comment [facility] Comment: EXPLANATORY NOTE: The Pap is [...] High Risk E6/E7 Not Detected NOT DETECTED [facility] Gallardo s/[place] Comment: Not Detected High Risk HPV types (16,18,31,33,35,39,45,51,52, 56,58,59,66,68) were not detected. Other HPV types which cause anogenital lesions may be present. The significance of the other types of HPV in malignant processes has not been established. Methodology: Real Time PCR Thin prep 12/26/2021 8:50 AM CDT 12/27/2021 4:45 AM CDT us Liliana Whipple MD LAB CYTOLOGY ORDERABLES Final Re sult [place] [address] [address] [place] [phone] [facility] [address] [place] [address] from Last 3 Months or Most Recently Relevant to Health Maintenance Insurance [facility] CHOICE [facility] H[facility]/PPO Address: [address] [address] [employer] [facility] [place] Guarantor: OTHER Account Type Relation to Patient Date of Phone Billing Address Workers Comp Employer WORKERS COMPENSATION GENERIC WORKERS COMPENSATION GENERIC Advance Directives For more information, please contact: [phone] * Full Code (Latest Code Status on File) Date Activated Date Inactivated Comments 05/11/2021 11:55 AM 05/11/2021 5:38 PM Care Teams Adapted Physical Education Specialist Relationship Specialty Start Date End Date Travis Pruett MD PCP - General 09/24/16
[2024-10-30 15:39] VITALS: BP 119/87; PULSE 82; RESP 16; TEMP 36.9; O2SAT 100
--- NOTE | 2024-10-30 15:57 | ED.UPPEXIN ---
HPI - Extremity Injury (Upper) General Chief Complaint: Extremity Injury, Upper Stated Complaint: right wrist pain Time Seen by Provider: 10/30/24 15:35 Source: patient Mode of arrival: ambulatory Limitations: no limitations History of Present Illness HPI narrative: this is a 29-year-old female who presents with pain and tenderness in her right wrist area, she had a colonoscopy approximately 6 days ago and had an IV placed in her right hand there is no swelling there is no redness there is no streaking but there is pain and tenderness after the IV approximately 6 days ago. There is no fever chills has good range of motion although the pain and tenderness in the anterior right wrist area. complaint: injury to: right Onset (ago): day(s) Handedness: right Place: other Severity: mild Related Data Allergies Allergy/AdvReac Type Severity Reaction Status Date / Time bee venom protein (honey bee) Allergy Unknown Unknown Verified 10/30/24 15:51 ciprofloxacin Allergy Unknown Rash Verified 10/30/24 15:51 erythromycin base Allergy Unknown Swelling Verified 10/30/24 15:51 prednisone Allergy Hives Verified 10/30/24 15:51 POTASSIUM CLAVULANATE Allergy Unknown NAUSEA/VOMI Uncoded 10/30/24 15:51 TING Review of Systems Review of Systems: All systems reviewed & are unremarkable except as noted in HPI and below PMFSH Past Medical History Medical History Elevated liver function tests Chronic cholecystitis without calculus Blood loss anemia Bacterial vaginosis Anxiety disorder, unspecified Acute gastritis without hemorrhage and not yet delivered Morbid obesity Gestational hypertension Term Dislocated patella Exposure to TB Rectal fissure Shingles Anxiety Gout UTI (urinary tract infection) Endometriosis with surgery x3 Migraines ADHD, predominantly inattentive type Surgical History Surgical History History of arthroscopy of knee History of knee surgery rt knee History of cholecystectomy History of wisdom tooth extraction Family History Family History Father Patient's father is in good health Family history of pancreatic disease Hypertension Mother Family history of gynecological problem Patient's mother is in good health Dementia Grandparent Family history of cardiovascular disease Diabetes mellitus Other Family history of lymphoma Social History Social History Smoking status: Never smoker Alcohol intake: current Drinks per week: 1 Substance use: never Do You Feel Safe in your Home?: Yes Lack of Transportation: YES Lack of Food: Never True Current Housing: I Have Housing Concerned About Future Housing: No Difficulty Paying Gas/Electric Bills: No Difficulty Paying for Meds: No Currently Unemployed: No Education: Master's Degree or Higher Difficulty w/ Childcare or Family Care: No Gender identity (if verbalized by the patient): Female Spiritual care concerns: No Exam Const: General: healthy appearing Nutritional Appearance: well nourished Orientation/consciousness: patient oriented x3 Limitations: no limitations Eyes: Conjunctivae: conjunctivae normal Neck: Neck: normal visual inspection, no lymphadenopathy and no meningeal signs Chest: Chest palpation & inspection: normal inspection of the chest Resp: Effort & Inspection: normal respiratory effort Auscultation: clear to auscultation bilaterally Cardio: Rate: regular rate Rhythm: regular rhythm GI: GI Palp: Yes Soft to palpation Auscultation: normal bowel sounds Skin: General skin exam: normal color Rashes: no rashes Wounds: no wounds Neuro: General: patient oriented x3, moves all extremities and no meningeal signs Extrem: Other: Tender anterior right hand and wrist with movement and palpation Course Course Emergency Course: patient received 60mg IM Toradol in after reassessment of patient pain level has improved. Vital Signs Vital signs: Vital Signs Temperature 36.9 C 10/30/24 15:39 Pulse Rate 82 10/30/24 15:39 Respiratory Rate 16 10/30/24 15:39 Blood Pressure 119/87 10/30/24 15:39 Pulse Oximetry 100 10/30/24 15:39 Oxygen Delivery Room Air 10/30/24 15:39 Temperature 36.9 C 10/30/24 15:39 Pulse Rate 82 10/30/24 15:39 Respiratory Rate 16 10/30/24 15:39 Blood Pressure 119/87 10/30/24 15:39 Pulse Oximetry 100 10/30/24 15:39 Oxygen Delivery Room Air 10/30/24 15:39 Critical Care Time Critical Care Time Critical Care Time: No Discharge Plan Discharge Clinical Impression: Tendinitis Patient Disposition: Home Condition: Stable Instructions: Antibiotic Form, Tendinitis (ED) Additional Instructions: advised to take medication as prescribed and use warm compress to affected hand and wrist and follow with primary if symptoms persist or worsen. Patient Language: Croatian Prescriptions: New naproxen 500 mg tablet 500 mg PO BID Qty: 10 0RF oxycodone-acetaminophen [Percocet] 5-325 mg tablet 1 tablet PO Q6H PRN (Reason: pain) Qty: 14 0RF No Action escitalopram oxalate [Lexapro] 10 mg tablet 10 mg PO DAILY Qty: 90 3RF rizatriptan [Maxalt] 10 mg tablet See Rx Instructions PO .COMPLEX Qty: 30 2RF Rx Instructions: take 1 tab at onset of headache; if no relief may repeat 1 tab after at least 2 hrs; max = 3 tabs/24 hr PO amitriptyline 10 mg tablet 10 mg PO QHS Qty: 90 1RF Qulipta 30 mg tablet See Rx Instructions .ROUTE .COMPLEX Qty: 30 0RF Dose Instruction: TAKE ONE TABLET BY MOUTH DAILY Rx Instructions: TAKE ONE TABLET BY MOUTH DAILY Follow-up/Referrals: Travis Pruett MD [Primary Care Provider] - Time of Disposition: 16:03
[2024-10-30] MEDS: KETOROLAC (*BKC) 60 MG/2 ML VIAL IM (16:04)
--- OUTSIDE RECORDS SUMMARY | 2024-10-30 16:05 | XMS_ITS | Clinical Summary ---
Author Organization [facility] Address [address] [place] [address] Care Team Providers Care Mailroom Manager Name Role Phone Travis Pruett MD Primary Care Provider [phone] [phone] Allergies Active Allergy Reactions Criticality Noted Date [...] 04/19/2018 Assessment & Plan (05/05/2018 1:42 PM RADIO DIVISION CAPTAIN): Chest pain is rare and atypical. Observe Assessment & Plan (04/19/2018 9:24 AM RADIO DIVISION CAPTAIN): Underwent exercise stress test and was negative at 75 percent of the maximum predicted heart rate. Seems to be atypical. Order echo to assess Syncope and collapse 04/15/2018 Assessment & Plan (05/05/2018 1:42 PM RADIO DIVISION CAPTAIN): No further recurrence of syncope. Unremarkable echocardiogram and event monitor. Patient has increase salt and water intake. Normal EKG. Suspect orthostatic hypotension. I will order CBC and comprehensive metabolic panel to complete the workup. Assessment & Plan (04/19/2018 9:26 AM RADIO DIVISION CAPTAIN): EKG today was normal with normal QTC [...] Description 10/24/2024 10:50 AM CDT Anesthesia Event [facility] GI Lab [address] [place] [address] Jasper Rendon, 10/24/2024 10:30 AM CDT - 10/24/2024 11:00 AM CDT Surgery [facility] Lab [address] [place] [address] Linsey Mills MD COLON BIOPSY 10/24/2024 9:16 AM CDT - 10/24/2024 12:00 PM CDT Hospital Encounter [facility] GI Lab [address] [place] [address] Linsey Mills MD Change in bowel habits Discharge Disposition: Discharge to home or self care from Last 3 Months Surgical History Surgery Date Site/Laterality Comments OR EXPLORATORY LAPAROTOMY CELIOTOMY W/WO BIOPSY SPX Exploratory Laparotomy - for endometriosis (Added by Conv) KNEE SURGERY 06/11/2012 - 06/10/[address] Matthews OR TONSILLECTOMY PRIMARY/SECONDARY <AGE 12 Tonsillectomy - (Added by TW Conv) WISDOM TOOTH EXTRACTION Oral Surgery Tooth Extraction George Tooth - (Added by TW Conv) OR HYSTEROSCOPY ENDOMETRIAL ABLATION Hysteroscopy With Endometrial Ablation - (Added by TW Conv) OR COLPOSCOPY CERVIX UPPER/ADJACENT VAGINA Colposcopy - (Added [...] Food intolerance GREASY FOOD Headache migraines- ~2x/w [place] Anemia 2008 pt denies, repor ts no [...] and Family Not on file 07/13/2020 Attends [employer] Services Not on file 07/13 Active Member [...] on file Legal Sex Female 12:26 PM RADIO DIVISION CAPTAIN Gender Identity Not on file Sexual Orientation [...] this topic Medical Devices Implanted Type Area [employer] Machine Operator Device Identifier Shelf Expiration Date Model / Serial / Lot Clip Clip Liver [employer] Ar-1365-425 4.5mm 42.5mm Self Tap Thread Knee Bicortical Low Profile Post - [id number] Implanted:Qty: 1 on 05/11/2021 by Jose Matthews IV, MD at [facility] Left: Knee [employer] AR-1365-425 / / [employer] Ar-1365-45 4.5mm 45mm Self Tap Thread Knee Bicortical Low Profile Post - [id number] Implanted:Qty: 1 on 05/11/2021 by Jose Matthews IV, MD at [facility] [place] Left: Knee [employer] AR-1365-45 / / [...] 11:03 AM CDT Comment:Cold bx Narrative PATHOLOGY [facility] - 10/27/2024 4:38 PM CDT [facility] Department of Pathology [address] [place] [address] Note to Patients: This report may contain [...] : 1995 (Age: 29) Gender: F Address: [address] [address] Hospital #: [id number] Service: Surgery Location: Patient Type: [facility] OUTPATIENT Taken: 10/24/2024 Received: 10/24/2024 Accessioned: 10/24/2024 [...] Jar 0. jjb/10/24/2024 12:25 GLORIA Elkins, RYAN [facility] Microscopic slide review and interpretation for this case was performed at [facility], Department of Surgical Pathology, [address] [facility], [id number], [place] [address] CLIA # [id number] Linsey Mills MD LAB PATHOLOGY ORDERABLES Final R esult PATHOLOGY [facility] * Colonoscopy (10/24/2024 10:50 AM CDT) Anatomical Region Laterality Modality Other Narrative Procedure Note Linsey Mills MD - 10/24/2024 10:50 AM CDT [facility] GI ENDOSCOPY Patient Name: Curtis Esquivel Procedure Date: 10/24/2024 10:50 AM Date of : 1995 Admit Type: Outpatient Age: 29 Gender: Female Attending MD: Linsey Mills M.D. Room: [facility] ENDOSCOPY ROOM 05 Note Status: Finalized [...] On: 10/24/2024 10:50 AM Recognized by the [place] [employer] for promoting quality in endoscopy Linsey Mills MD ENDOSCOPY PROCEDURES Final Resul t * hCG, blood, quantitative (10/24/2024 9:57 AM CDT) Pathologist [facility] hCG, quant <5.0 0.0 - 5.0 IUnits/L [...] DO LAB BLOOD ORDERABLES Final Re sult [facility] [address] [facility] [place] [address] * Pap and High Risk HPV, reflex to Genotyping (12/26/2021 8:50 AM CDT) Pathologist [facility] CLINICAL INFORMATION: SCREENING HX OF [place] 1 [facility] LMP 7/ [facility] Previous Pap INFORMATION NOT PROVIDED [facility] Prev. Bx INFORMATION NOT PROVIDED [facility] SOURCE: Cervix, Endocervix [facility] Pap, specimen adequacy Satisfactory for evaluation. Endocervical/shoemaker sformation zone component present. [facility] HPV interp Negative for intraepithelial lesion or malignancy. [facility] Infection: Fungal organisms morphologically consistent with Aline spp. [facility] Account Consultant ABC, CT(ASCP) CT screening location: [place] [address] [address] [place] [address] [facility] Review logistics project manager AMW, CT(ASCP) CT screening location: [place] [address] Administration [place] [id number] [facility] Comment [facility] Comment: EXPLANATORY NOTE: The Pap is [...] High Risk E6/E7 Not Detected NOT DETECTED [facility]: Not Detected High Risk HPV types (16,18,31,33,35,39,45,51,52, 56,58,59,66,68) were not detected. Other HPV types which cause anogenital lesions may be present. The significance of the other types of HPV in malignant processes has not been established. Methodology: Real Time PCR Thin prep 12/26/2021 8:50 AM CDT 12/27/2021 4:45 AM CDT us Liliana Whipple MD LAB CYTOLOGY ORDERABLES Final Re sult [facility] [address] [place] [address] [facility] [employer] [employer]/[facility] [address] [place] [address] from Last 3 Months or Most Recently Relevant to Health Maintenance Insurance [facility] CHO[facility]US [facility] H[facility]/PPO Address: [address] [address] COMMERCIAL GENERIC [facility] * Guarantor: OTHER Account Type Relation to Patient Date of Phone Billing Address Workers Comp Employer WORKERS COMPENSATION GENERIC WORKERS COMPENSATION GENERIC Advance Directives For more information, please contact: [phone] * Full Code (Latest Code Status on File) Date Activated Date Inactivated Comments 05/11/2021 11:55 AM 05/11/2021 5:38 PM Care Teams Mailroom Manager Relationship Specialty Start Date End Date Travis Pruett MD PCP - General 09/24/16
--- OUTSIDE RECORDS SUMMARY | 2024-10-30 16:05 | XMS_ITS | Referral Summary ---
Author Organization [facility] Address [address] [place] [address] Care Team Providers Care Inspection Supervisor Name Role Phone Travis Pruett MD Primary Care Provider [phone] Encounters Date Type Department Care Team Description 10/24/2024 10:50 AM CDT Anesthesia Event [facility] [address] [place] [id number] Jasper Rendon, 10/24/2024 10:30 AM CDT - 10/24/2024 11:00 AM CDT Surgery [facility] [address] [place] [address] Linsey Mills MD COLON BIOPSY 10/24/2024 9:16 AM CDT - 10/24/2024 12:00 PM CDT Hospital Encounter [facility] [address] [place] [address] Linsey Mills MD Change in bowel habits [...] 04/19/2018 Assessment & Plan (05/05/2018 1:42 PM VICE PRESIDENT OF CUSTOMER SERVICE): Chest pain is rare and atypical. Observe Assessment & Plan (04/19/2018 9:24 AM VICE PRESIDENT OF CUSTOMER SERVICE): Underwent exercise stress test and was negative at 75 percent of the maximum predicted heart rate. Seems to be atypical. Order echo to assess Syncope and collapse 04/15/2018 Assessment & Plan (05/05/2018 1:42 PM VICE PRESIDENT OF CUSTOMER SERVICE): No further recurrence of syncope. Unremarkable echocardiogram and event monitor. Patient has increase salt and water intake. Normal EKG. Suspect orthostatic hypotension. I will order CBC and comprehensive metabolic panel to complete the workup. Assessment & Plan (04/19/2018 9:26 AM VICE PRESIDENT OF CUSTOMER SERVICE): EKG today was normal with normal QTC [...] and Family Not on file 07/13/2020 Attends [employer] Not on file 07/13 Active Member [...] on file Legal Sex Female 12:26 PM VICE PRESIDENT OF CUSTOMER SERVICE Gender Identity Not on file Sexual Orientation [...] on file Medical Devices Implanted Type Area Habitat Biologist Device Identifier Shelf Expiration Date Model / Serial / Lot Clip Clip Liver [employer] Ar-1365-425 4.5mm 42.5mm Self Tap Thread Knee Bicortical Low Profile Post - [id number] Implanted:Qty: 1 on 05/11/2021 by Jose Matthews IV, MD at [facility] [place] Left: Knee [employer] AR-1365-425 / / [employer] Ar-1365-45 4.5mm 45mm Self Tap Thread Knee Bicortical Low Profile Post - [id number] Implanted:Qty: 1 on 05/11/2021 by Jose Matthews IV, MD at [facility] [place] Left: Knee [employer] AR-1365-45 / / [...] 11:03 AM CDT Comment:Cold bx Narrative PATHOLOGY [facility] - 10/27/2024 4:38 PM CDT [facility] Department of Pathology [address] [place] [address] Note to Patients: This report may contain [...] : 1995 (Age: 29) Gender: F Address: [address] [place] [address] Hospital #: [id number] Service: Surgery Location: Patient Type: [facility] OUTPATIENT Taken: 10/24/2024 Received: 10/24/2024 Accessioned: [...] cm. Entirely submitted. Labeled B1. Jar [facility]. [facility]/10/24/2024 12:25 GLORIA Elkins, PA (ASCP) Microscopic slide review and interpretation for this case was performed at [facility], Department of Surgical Pathology, [address] [facility], [id number], [place] [address] CLIA # [id number] Linsey Mills MD LAB PATHOLOGY ORDERABLES Final R esult PATHOLOGY [facility] * Colonoscopy (10/24/2024 10:50 AM CDT) Anatomical Region Laterality Modality Other Narrative Procedure Note Linsey Mills MD - 10/24/2024 10:50 AM CDT [facility] GI ENDOSCOPY Patient Name: Curtis Esquivel Procedure Date: 10/24/2024 10:50 AM Date of : 1995 Admit Type: Outpatient Age: 29 Gender: Female Attending MD: Linsey Mills M.D. Room: [facility] ENDOSCOPY ROOM 05 Note [...] On: 10/24/2024 10:50 AM Recognized by the [employer] [employer] for promoting quality [...] LAB BLOOD ORDERABLES Final Re sult JOSEPH [address] [facility] Department [place] [address] * Pap and High Risk HPV, reflex to Genotyping (12/26/2021 8:50 AM CDT) CLINICAL INFORMATION: SCREENING HX OF [place] [facility]-Lucretia LMP 7/6 [facility] Previous Pap INFORMATION NOT PROVIDED [facility] Prev. Bx INFORMATION NOT PROVIDED [facility] SOURCE: Cervix, Endocervix [facility] Pap, specimen adequacy Satisfactory for evaluation. Endocervical/shoemaker sformation zone component present. [facility] HPV interp Negative for intraepithelial lesion or malignancy. 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 [facility] Public Address System Operator ABC, CT(ASCP) CT screening location: [place] [address] Administration ROSITA Collins [id number] [place] [address] Review director paid media AMW, CT(ASCP) CT screening location: [place] [address] Administration ROSITA Collins [address] [facility] Comment [facility] Comment: EXPLANATORY NOTE: The Pap is a [...] Detected NOT DETECTED Buck Gallardo s/[place] Comment: Not Detected High Risk HPV types (16,18,31,33,35,39,45,51,52, 56,58,59,66,68) were not detected. Other HPV types which cause anogenital lesions may be present. The significance of the other types of HPV in malignant processes has not been established. Methodology: Real Time PCR Thin prep 12/26/2021 8:50 AM CDT 12/27/2021 4:45 AM CDT us Liliana Whipple MD LAB CYTOLOGY ORDERABLES Final Re sult [place] [address] Administration ROSITA Jimenez [phone] Buck Burciaga[facility] [address] [facility] [place] [phone] from Last 3 Months or Most Recently Relevant to Health Maintenance Insurance [facility] CHOICE [employer]ERCIAL GENERIC [facility] [place] Sub[place] Plan / Payer (Ef fective 2021-Present) Name:Curtis Esquivel Member ID:[id number] Relation to Subscriber:Employee Name:CURTIS ESQUIVEL Subscriber ID:[id number] Date of :1995 (Home) (Work) Address: [address] [place] [id number] Payer ID:[id number] Group ID:[id number] Type:WORKERS COMPENSATION Address: [place] [address] * Guarantor: OTHER Account Type Relation to Patient Date of Phone Billing Address Workers Comp Employer WORKERS COMPENSATION GENERIC WORKERS COMPENSATION GENERIC * Guarantor: Curtis Esquivel Account Type Relation to Patient Date of Phone Billing Address Personal/Family Self 1995 [address] [place] [id number] Advance Directives For more information, please contact: [phone] * Full Code (Latest Code Status on File) Date Activated Date Inactivated Comments 05/11/2021 11:55 AM 05/11/2021 5:38 PM Care Teams Inspection Supervisor Relationship Specialty Start Date End Date Travis Pruett MD PCP - General 09/24/16
== END 2024-10-30 16:16 | disposition home or self-care (01) ==
LOC: CHSED 16:03
PROVIDERS: Emergency Provider Emergency Medicine; PCP Family Medicine
DX: M77.8 Other enthesopathies, not elsewhere classified (principal); M25.531 Pain in right wrist
CPT/HCPCS: 96372; 99283; J1885

== ENCOUNTER 2024-12-19 16:14 | Outpatient (CLI) | payer OTHER, SELFPAY ==
--- NOTE | ~2024-12-19 | XR_ITS ---
Lumbosacral Spine: AP and lateral views Clinical History: Pain Findings: The normal lordotic curve is maintained. The vertebral bodies and posterior elements are i ntact. The intervertebral disc spaces are preserved. The sacroiliac joints are normally outlined. Impression: No significant abnormality. Reviewed, dictated and finalized at [facility]. Impression: No significant abnormality.
--- NOTE | ~2024-12-19 | XR_ITS ---
Thoracic spine: Clinical Indication: Back pain AP and lateral views were performed. No fracture is seen. There is normal alignment of the vertebrae. The intervertebral disc spaces appe ar normal. Paravertebral soft tissues appear normal. Impression: No significant abnormalities noted. Reviewed, dictated and finalized at [facility]. Impression: No significant abnormalities noted.
== END 2024-12-19 16:15 | disposition home or self-care (01) ==
PROVIDERS: PCP Nurse Practitioner Family; Visit Provider Nurse Practitioner Family
DX: M54.9 Dorsalgia, unspecified (principal)
CPT/HCPCS: 72070; 72100

== ENCOUNTER 2025-01-29 16:31 | Outpatient (RCR) | payer OTHER, SELFPAY ==
--- NOTE | 2025-01-29 18:00 | OPREHPOC ---
Outpatient Therapy Plan of Care This is a Multidisciplinary Plan of Care that may contain components documented by all disciplines (PT, OT, and ST.) PT Problem 1 PT Problem #1 Knowledge Deficit PT Goal 1 Goal / Goal Update Independent and compliant with HEP. Target Visit 2 PT Problem 2 PT Problem #2 Pain PT Goal 1 Goal / Goal Update Pt to report no worse than 3/10 pain in the low back. Pt to report being able to sleep through the night without being awoken due to back pain. Target Visit 8 PT Problem 3 PT Problem #3 Impaired Range of Motion PT Goal 1 Goal / Goal Update Pt to demonstrate pain-free lumbar AROM to improve ability to bend forward and lift objects. Target Visit 8 PT Problem 4 PT Problem #4 Impaired Strength PT Goal 1 Goal / Goal Update Patient to improve upper and lower abdominal strength to 4+/5 for improved lumbar stability. Pt to improve bilat hip flexion strength to 4+/5. Target Visit 8 PT Problem 5 PT Problem #5 Impaired Functional Mobility PT Goal 1 Goal / Goal Update Pt to report 20% reduction in perceived disability on Oswestry. 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 Pt to report being able to sit for more than 45 minutes without back pain. Target Visit 8
--- NOTE | 2025-01-29 18:00 | PTOPEVAL1 ---
Assessment and note entered by Darlene Castro, PT Evaluation Information Assessment Status Evaluation ICD-10 Condition Codes (PT) Pain in low back M54.50,Radiculopathy, lumbar region M54.16 Other ICD-10 Condition Codes ( M54.9 PT) Onset 11/24/2024 Subjective Information Pt reports she went to bed one night and woke up with her back hurting and she couldn't move. She is currently taking pain pills and a muscle relaxant twice per day and these help but she really wants to start weaning off of these. 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 She reports overall anything that puts stress on her lower back causes pain. She notes her pain can radiate up into her mid back and also down the R leg into the hip. The pain is sharp in nature but pt denies any tingling or numbness, however sometimes her R leg feels colder than the L occasionally. Also notes waking up around 3 times per night due to pain. Reported Pain Level Pain Score 6: Self Report Assessment PT Clinical Summary Mrs. Mcadams is a 29 yo female who presents for skilled PT evaluation for low back pain with radicular symptoms down the R leg. She demonstrates moderate hip flexor and abdominal mm weakness along with reproduction of pain with active lumbar movements and palpation to the lumbar spine. 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 Plan of Care Interventions Electrical Stimulation,Gait Training,Hot Pack/Cold Pack,Manual Therapy,Mechanical Traction,Neuro Re- education,Patient/Caregiver Education,Therapeutic Activities,Therapeutic Exercise,Self-Care/Home Management Other Interventions TPDN PT Services Indicated Yes Treatment Frequency and 2x/week for 8 visits Duration These treatments will address the objective and functional deficits as defined above. The patient will be advanced safely and appropriately in order for the patient to progress towards his/her prior level of function. Additional exercises will be introduced and as well as a comprehensive home exercise program upon discharge, if needed, ?to ensure carryover of functional gains achieved in the clinic. This treatment plan has been reviewed and agreement upon by the patient.
--- NOTE | 2025-02-23 16:13 | OPREHPOC ---
Outpatient Therapy Plan of Care This is a Multidisciplinary Plan of Care that may contain components documented by all disciplines (PT, OT, and ST.) PT Problem 1 PT Problem #1 Knowledge Deficit PT Goal 1 Goal / Goal Update Independent and compliant with HEP. Target Visit 2 Progress Met PT Problem 2 PT Problem #2 Pain PT Goal 1 Goal / Goal Update Pt to report no worse than 3/10 pain in the low back. Pt to report being able to sleep through the night without being awoken due to back pain. Target Visit 8 Progress Met PT Problem 3 PT Problem #3 Impaired Range of Motion PT Goal 1 Goal / Goal Update Pt to demonstrate pain-free lumbar AROM to improve ability to bend forward and lift objects. Target Visit 8 Progress Met PT Problem 4 PT Problem #4 Impaired Strength PT Goal 1 Goal / Goal Update Patient to improve upper and lower abdominal strength to 4+/5 for improved lumbar stability. Pt to improve bilat hip flexion strength to 4+/5. Target Visit 8 Progress Met PT Problem 5 PT Problem #5 Impaired Functional Mobility PT Goal 1 Goal / Goal Update Pt to report 20% reduction in perceived disability on Oswestry. 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 Pt to report being able to sit for more than 45 minutes without back pain. Target Visit 8 Progress Met
--- NOTE | 2025-02-23 16:13 | PTOPDC ---
Assessment and note entered by Darlene Castro, PT Evaluation Information Assessment Status Discharge ICD-10 Condition Codes (PT) Pain in low back M54.50,Radiculopathy, lumbar region M54.16 Other ICD-10 Condition Codes ( M54.9 PT) Onset 11/24/2024 Subjective Information Asuncion reports she's feeling good and her back pain has reduced significantly. 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 She has been independent with her HEP and feels ready to discharge from PT this date. Reported Pain Level Pain Score 1: Self Report Assessment PT Clinical Summary Mrs. Mcadams has attended 8 skilled PT visits for low back pain. Since beginning therapy her back pain has reduced significantly and she demonstrates good improvements in her abdominal and hip mm strength. She is now able to stand and sit for prolonged periods, sleep, and lift her son with little to no pain. She has been independent with her HEP and has met all her therapeutic goals and is therefore appropriate for discharge from skilled PT this date. Plan of Care PT Services Indicated No
== END 2025-02-23 20:00 | disposition home or self-care (01) ==
LOC: CHSPT 16:31
PROVIDERS: Visit Provider Nurse Practitioner Family
DX: M54.9 Dorsalgia, unspecified (principal); M54.16 Radiculopathy, lumbar region
CPT/HCPCS: 97014; 97110; 97112; 97140; 97150; 97161; G0283

== ENCOUNTER 2025-04-02 14:30 | Outpatient (CLI) | payer OTHER, SELFPAY ==
--- NOTE | ~2025-04-02 | MR_ITS ---
EXAMINATION: MR ankle LT wo con DATE: 04/02/2025 15:16 INDICATION: Left ankle injury TECHNIQUE: Magnetic resonance imaging (MRI) of the left ankle was performed without intravenous contrast. Sequences included sagittal, coronal, and axial proton-density weighted fast spin echo without and with fat saturation. COMPARISON: None. FINDINGS: Medial ankle ligaments: Deep and superficial deltoid ligaments as well as the spring ligament are normal. Lateral ankle ligaments: The anterior and posterior inferior tibiofibular ligaments are normal. The calcaneofibular and posterior talofibular ligaments are normal. Soft tissue at the anterolateral aspect of the ankle peripheral to the anterior talofibular ligament which appears thickened with increased signal but without jerry fluid filled tear defect consistent with recent moderate grade sprain/partial tear. Tendons: Achilles tendon is normal. The peroneus longus and brevis tendons are normal. The tibialis anterior and extensor hallucis longus and extensor digitorum longus tendons are normal. The tibialis posterior, flexor digitorum longus and flexor hallucis longus tendons are normal. Plantar fascia: Plantar aponeurosis is normal. Bones/other: There is marrow edema surrounding a low signal intensity subarticular likely impaction fracture line at the medial side of the head of the talus. No displacement or evident cortical discontinuity. Bone marrow signal is otherwise normal throughout with no other fractures or pathologic marrow replacing p rocess. Fluid: Visualized amount fluid in the joint spaces. IMPRESSION: 1. Moderate grade sprain/partial tear of the anterior talofibular ligament. 2. Subarticular impaction fracture line underlying the medial head of the head of the talus without evident displacement or cortical discontinuity. Reviewed, dictated and finalized at location A.
== END 2025-04-02 14:31 | disposition home or self-care (01) ==
PROVIDERS: PCP Family Medicine; Visit Provider Nurse Practitioner Family
DX: S93.492A Sprain of other ligament of left ankle, initial encounter (principal); S92.122A Displaced fracture of body of left talus, initial encounter for closed fracture
CPT/HCPCS: 73721